=== PATIENT | male | born 1950 | race African-American/Black ===

== ENCOUNTER 2016-05-25 09:32 | Emergency (ER) | payer MEDICAID ==
[~2016-05-25] VITALS: Ht 185.4 cm; Wt 91.0 kg
[~2016-05-25 09:32] MED LIST: LEVO500T15 PO
[2016-05-25] MEDS ORDERED: KETOROLAC 30MG/ML VIAL IM ONE (11:15)
[2016-05-25 12:08] VITALS: BP 138/79
== END 2016-05-25 14:58 | disposition home or self-care (01) ==
LOC: ER 11:52
DX: M25.562 Pain in left knee (principal); I10 Essential (primary) hypertension; Z90.81 Acquired absence of spleen
CPT/HCPCS: 73562; 96372; 99284; J1885

== ENCOUNTER 2017-01-21 12:39 | Inpatient (IN) | payer MEDICAID ==
[~2017-01-21] VITALS: Ht 185.4 cm; Wt 90.7 kg
[~2017-01-21 12:39] MED LIST changes: +AMLO10TA80 PO; +CIPR-168 PO; +FURO-151 PO; -LEVO500T15 PO; +OR220 PO; +PULM50 HHN
[2017-01-21] MEDS ORDERED: MORPHINE SULFATE 4 MG/ML CPJ (NOT FOR IM USE) IV ONE (13:30)
[2017-01-21] MEDS ORDERED: ONDANSETRON HCL 4MG/2ML VIAL IV ONE (13:30)
[2017-01-21 14:23] LABS: HEMATOCRIT. 44.9 % (42.0-52.0); HEMOGLOBIN. 14.2 g/dL (14.0-18.0); MEAN CORPUSCULAR HEMOGLOBIN 23.5 pg (28.0-32.0); MEAN CORPUSCULAR VOLUME 74.4 fL (80.0-94.0); MEAN PLATELET VOLUME 8.9 fl (7.4-10.4); PLATELET 352 x1000/uL (130-400); RED BLOOD CELL COUNT 6.03 mill/uL (4.7-6.1); RED CELL DISTRIBUTION WIDTH 18.3 % (11.6-14.6)
[2017-01-21 14:30] LABS: INR 1.3; PROTHROMBIN TIME 13.3 sec (9.4-11.6)
[2017-01-21 14:40] LABS: CARBON DIOXIDE 25 mEq/L (21-32); CHLORIDE 106 mEq/L (98-107); TROPONIN I < 0.02 ng/mL (0.00-0.04)
[2017-01-21] MEDS ORDERED: ASPIRIN 325MG EC TABLET PO ONE (15:15)
[2017-01-21 15:25] LABS: ATYPICAL LYMPHOCYTES 1
[2017-01-21 15:26] LABS: PLATELET ESTIMATE NORMAL
[2017-01-21] MEDS ORDERED: ACETAMINOPHEN 325MG TABLET PO PRN (16:00)
[2017-01-21] MEDS ORDERED: HYDROCODONE/ACETAMINOPHEN 5/325MG TABLET PO PRN (16:00)
[2017-01-21] MEDS ORDERED: MAGNESIUM/ALUMINUM HYDROXIDE/SIMETHICONE 30ML UDC PO PRN (16:00)
[2017-01-21] MEDS ORDERED: DIPHENHYDRAMINE 50MG/ML VIAL IV PRN (16:00)
[2017-01-21] MEDS ORDERED: MORPHINE SULFATE 2 MG/ML CPJ (NOT FOR IM USE) IV PRN (16:00)
[2017-01-21] MEDS ORDERED: IPRATROPIUM/ALBUTEROL 0.5-3(2.5)MG/3ML NEB INH PRN (16:00)
[2017-01-21] MEDS ORDERED: DOCUSATE SODIUM 100MG CAPSULE PO PRN (16:00)
[2017-01-21] MEDS ORDERED: NA PHOS,M-B/NA PHOS,DI-BA ENEMA 118ML PR PRN (16:00)
[2017-01-21] MEDS ORDERED: ONDANSETRON HCL 4MG/2ML VIAL IV PRN (16:00)
[2017-01-21] MEDS ORDERED: LORAZEPAM 0.5MG TABLET PO PRN (16:15)
[2017-01-21] MEDS: CLONIDINE 0.1MG TABLET PO PRN (17:15)
[2017-01-21 17:40] VITALS: BP 158/109
[2017-01-21 20:00] VITALS: BP 135/94
[2017-01-21] MEDS: ENOXAPARIN 40MG/0.4ML SYR SUBCUT SCH (20:48)
[2017-01-22] VITALS: BP 126/84
[2017-01-22 04:00] VITALS: BP 132/78
[2017-01-22 06:20] LABS: CARBON DIOXIDE 24 mEq/L (21-32); CHLORIDE 109 mEq/L (98-107)
[2017-01-22 06:26] LABS: BASOPHILS % 0.4 % (0.0-2.0); HDL CHOLESTEROL 38 mg/dL (40-59); HEMOGLOBIN. 12.9 g/dL (14.0-18.0); LDL CHOLESTEROL 59 mg/dL (5-100); LYMPHOCYTES % 28.9 % (20.0-50.0); MEAN CORPUSCULAR HEMOGLOBIN 23.2 pg (28.0-32.0); MEAN CORPUSCULAR VOLUME 73.7 fL (80.0-94.0); MEAN PLATELET VOLUME 9.5 fl (7.4-10.4); MONOCYTES % 14.2 % (2.0-8.0); NEUTROPHILS % 56.5 % (40.0-76.0); PLATELET 348 x1000/uL (130-400); RED BLOOD CELL COUNT 5.56 mill/uL (4.7-6.1); T4 FREE 1.44 ng/dL (0.76-1.46); TROPONIN I 0.02 ng/mL (0.00-0.04)
[2017-01-22 08:00] VITALS: BP 149/103
[2017-01-22] MEDS: ASPIRIN 81MG EC TABLET PO SCH (09:21)
[2017-01-22] MEDS: CLONIDINE 0.1MG TABLET PO PRN (09:21)
[2017-01-22 12:13] VITALS: BP 140/90
[2017-01-22] MEDS: LEVOFLOXACIN 500MG TABLET PO SCH (14:51)
[2017-01-22 15:41] LABS: *AMPHETAMINES SCREEN URINE NEGATIVE (NEGATIVE); *BARBITURATES SCREEN URINE NEGATIVE (NEGATIVE); *BENZODIAZEPINES SCREEN URINE NEGATIVE (NEGATIVE); *COCAINE SCREEN URINE PRESUMTIVE POSITIVE (NEGATIVE); CANNABINOID URINE SCREEN NEGATIVE (NEGATIVE); METHADONE URINE SCREEN NEGATIVE (NEGATIVE); OPIATES URINE SCREEN PRESUMTIVE POSITIVE (NEGATIVE); PHENCYCLIDINE URINE SCREEN NEGATIVE (NEGATIVE)
[2017-01-22 16:00] VITALS: BP 126/78
[2017-01-22] MEDS: LOSARTAN POTASSIUM 25 MG TABLET PO SCH (16:54)
[2017-01-22 17:50] LABS: TROPONIN I 0.04 ng/mL (0.00-0.04)
[2017-01-22 20:00] VITALS: BP 147/80
[2017-01-22] MEDS: CARVEDILOL 3.125 MG TABLET PO SCH (20:52)
[2017-01-22] MEDS: ENOXAPARIN 40MG/0.4ML SYR SUBCUT SCH (20:53)
[2017-01-23] VITALS: BP 128/77
[2017-01-23 01:09] LABS: CREATINE KINASE MB FRACTION 1.1 ng/mL (0.5-3.6); TROPONIN I 0.03 ng/mL (0.00-0.04)
[2017-01-23] MEDS: GUAIFENESIN 200MG/10ML SUGAR FREE UDC PO PRN ×2 (03:12→07:41)
[2017-01-23 04:00] VITALS: BP 136/85
[2017-01-23 07:09] LABS: HEMATOCRIT. 40.9 % (42.0-52.0); HEMOGLOBIN. 12.8 g/dL (14.0-18.0); MEAN CORPUSCULAR VOLUME 73.9 fL (80.0-94.0); MEAN PLATELET VOLUME 9.4 fl (7.4-10.4); PLATELET 347 x1000/uL (130-400); RED BLOOD CELL COUNT 5.54 mill/uL (4.7-6.1); RED CELL DISTRIBUTION WIDTH 18.2 % (11.6-14.6)
[2017-01-23 07:42] LABS: CHLORIDE 108 mEq/L (98-107)
[2017-01-23 08:00] VITALS: BP 140/98
[2017-01-23 08:17] LABS: CARBON DIOXIDE 22 mEq/L (21-32); CREATINE KINASE 25 IU/L (39-308); CREATINE KINASE MB FRACTION 1.1 ng/mL (0.5-3.6); TROPONIN I 0.03 ng/mL (0.00-0.04)
[2017-01-23] MEDS: CARVEDILOL 3.125 MG TABLET PO SCH (10:02)
[2017-01-23] MEDS: LEVOFLOXACIN 500MG TABLET PO SCH (10:02)
[2017-01-23] MEDS: LOSARTAN POTASSIUM 25 MG TABLET PO SCH (10:02)
[2017-01-23] MEDS: ASPIRIN 81MG EC TABLET PO SCH (10:02)
[2017-01-23 10:08] VITALS: BP 140/98
[2017-01-24 09:29] LABS: PLATELET ESTIMATE NORMAL
== END 2017-01-23 10:27 | disposition home or self-care (01) | DRG 199 ==
LOC: ER 13:14 → ENRESERV 14:19 → 8WST 15:33 → EDBEDREQ 15:35
PROVIDERS: ADMIT Internal Medicine; ATTEND Internal Medicine
DX: I16.9 Hypertensive crisis, unspecified (principal); R65.11 Systemic inflammatory response syndrome (SIRS) of non-infectious origin with acute organ dysfunction; I50.9 Heart failure, unspecified; I11.0 Hypertensive heart disease with heart failure; F10.21 Alcohol dependence, in remission; F17.210 Nicotine dependence, cigarettes, uncomplicated; I25.10 Atherosclerotic heart disease of native coronary artery without angina pectoris; K21.9 Gastro-esophageal reflux disease without esophagitis; Z90.81 Acquired absence of spleen; Z79.899 Other long term (current) drug therapy; M94.0 Chondrocostal junction syndrome [Tietze]
CPT/HCPCS: 36415; 71010; 80048; 80053; 80061; 80305; 82550; 82553; 83036; 83880; 84439; 84443; 84484; 85025; 85379; 85610; 93005; 93306; 93970; 96374; 96375; 99285; J1650; J2270; J2405

== ENCOUNTER 2017-02-04 10:20 | Inpatient (IN) | payer MEDICAID ==
[~2017-02-04] VITALS: Ht 172.7 cm; Wt 81.3 kg
[2017-02-04 14:42] LABS: EOSINOPHILS % 0.3 % (0.0-5.0); HEMATOCRIT. 46.6 % (42.0-52.0); HEMOGLOBIN. 14.6 g/dL (14.0-18.0); MEAN CORPUSCULAR HEMOGLOBIN 22.8 pg (28.0-32.0); MEAN CORPUSCULAR VOLUME 72.5 fL (80.0-94.0); MEAN PLATELET VOLUME 10.3 fl (7.4-10.4); MONOCYTES % 14.2 % (2.0-8.0); NEUTROPHILS % 52.5 % (40.0-76.0); PLATELET 203 x1000/uL (130-400); RED BLOOD CELL COUNT 6.43 mill/uL (4.7-6.1); RED CELL DISTRIBUTION WIDTH 17.6 % (11.6-14.6)
[2017-02-04 14:50] LABS: INR 1.2; PARTIAL THROMBOPLASTIN TIME 28.5 sec (23.4-31.0); PROTHROMBIN TIME 12.5 sec (9.4-11.6)
[2017-02-04 15:00] LABS: CARBON DIOXIDE 26 mEq/L (21-32); CHLORIDE 110 mEq/L (98-107); TROPONIN I 0.03 ng/mL (0.00-0.04)
[2017-02-04] MEDS ORDERED: CEFTRIAXONE SODIUM 1 G/VIAL IM SCH (15:15)
[2017-02-04] MEDS ORDERED: AZITHROMYCIN 500 MG TABLET PO SCH (15:30)
[2017-02-04] MEDS ORDERED: IPRATROPIUM/ALBUTEROL 0.5-3(2.5)MG/3ML NEB INH PRN (17:30)
[2017-02-04] MEDS ORDERED: GUAIFENESIN 200MG/10ML SUGAR FREE UDC PO PRN (17:30)
[2017-02-04] MEDS ORDERED: LORAZEPAM 0.5MG TABLET PO PRN (17:30)
[2017-02-04] MEDS ORDERED: ACETAMINOPHEN 325MG TABLET PO PRN (17:30)
[2017-02-04] MEDS ORDERED: NA PHOS,M-B/NA PHOS,DI-BA ENEMA 118ML PR PRN (17:30)
[2017-02-04] MEDS ORDERED: MORPHINE SULFATE 2 MG/ML CPJ (NOT FOR IM USE) IV PRN (17:30)
[2017-02-04] MEDS ORDERED: MAGNESIUM/ALUMINUM HYDROXIDE/SIMETHICONE 30ML UDC PO PRN (17:30)
[2017-02-04] MEDS ORDERED: ONDANSETRON HCL 4MG/2ML VIAL IV PRN (17:30)
[2017-02-04] MEDS ORDERED: DOCUSATE SODIUM 100MG CAPSULE PO PRN (17:30)
[2017-02-04] MEDS ORDERED: HYDROCODONE/APAP 7.5/325MG 1 TAB TABLET PO PRN (17:30)
[2017-02-04] MEDS ORDERED: DIPHENHYDRAMINE 50MG/ML VIAL IV PRN (17:30)
[2017-02-04 18:01] VITALS: BP 135/85
[2017-02-04 20:00] VITALS: BP 124/84
[2017-02-04] MEDS ORDERED: LEVOFLOXACIN 500MG PREMIX 100 ML IV SCH (20:00)
[2017-02-04] MEDS ORDERED: PNEUMOCOCCAL 23-VAL P-SAC VAC 0.5 ML IM ONE (21:00)
[2017-02-04] MEDS: ENOXAPARIN 40MG/0.4ML SYR SUBCUT SCH (21:16)
[2017-02-05] VITALS: BP 131/83
[2017-02-05 04:00] VITALS: BP 158/74
[2017-02-05 06:09] LABS: CHLORIDE 113 mEq/L (98-107)
[2017-02-05 06:17] LABS: HEMATOCRIT. 44.6 % (42.0-52.0); HEMOGLOBIN. 13.7 g/dL (14.0-18.0); MEAN CORPUSCULAR HEMOGLOBIN 22.4 pg (28.0-32.0); MEAN CORPUSCULAR VOLUME 73.2 fL (80.0-94.0); MEAN PLATELET VOLUME 10.6 fl (7.4-10.4); PLATELET 184 x1000/uL (130-400); RED BLOOD CELL COUNT 6.09 mill/uL (4.7-6.1); RED CELL DISTRIBUTION WIDTH 17.7 % (11.6-14.6)
[2017-02-05 06:22] LABS: CARBON DIOXIDE 22 mEq/L (21-32); HDL CHOLESTEROL 29 mg/dL (40-59); LDL CHOLESTEROL 49 mg/dL (5-100); T4 FREE 1.33 ng/dL (0.76-1.46); TROPONIN I 0.03 ng/mL (0.00-0.04)
[2017-02-05 08:00] VITALS: BP 141/89
[2017-02-05] MEDS ORDERED: INFLUENZA VIRUS VACCINE 0.5ML SYR IM ONE (09:00)
[2017-02-05] MEDS: ASPIRIN 81MG EC TABLET PO SCH (09:14)
[2017-02-05 10:21] LABS: NUCLEATED RED BLOOD CELLS 5 /100 WBC
[2017-02-05 10:22] LABS: PLATELET ESTIMATE NORMAL
[2017-02-05 12:00] VITALS: BP 140/78
[2017-02-05 16:29] VITALS: BP 128/89
[2017-02-05 18:10] LABS: CREATINE KINASE MB FRACTION 1.4 ng/mL (0.5-3.6)
[2017-02-05 18:18] LABS: TROPONIN I 0.03 ng/mL (0.00-0.04)
[2017-02-05] MEDS ORDERED: LOPERAMIDE HCL 2MG CAPSULE PO PRN (19:00)
[2017-02-05] MEDS ORDERED: POTASSIUM CHLORIDE 20MEQ TABLET SR PO NR (19:30)
[2017-02-05] MEDS: LEVOFLOXACIN 500MG PREMIX 100 ML IV SCH (20:33)
[2017-02-05] MEDS: ENOXAPARIN 40MG/0.4ML SYR SUBCUT SCH (20:33)
[2017-02-06] VITALS: BP 145/101
[2017-02-06] MEDS: CLONIDINE 0.1MG TABLET PO PRN ×2 (00:33→16:32)
[2017-02-06 00:59] LABS: CREATINE KINASE MB FRACTION 1.1 ng/mL (0.5-3.6); TROPONIN I 0.03 ng/mL (0.00-0.04)
[2017-02-06 08:00] VITALS: BP 138/89
[2017-02-06] MEDS: ASPIRIN 81MG EC TABLET PO SCH (09:57)
[2017-02-06 12:00] VITALS: BP 143/103
[2017-02-06 12:32] LABS: CREATINE KINASE MB FRACTION 1.2 ng/mL (0.5-3.6); TROPONIN I 0.02 ng/mL (0.00-0.04)
[2017-02-06 16:00] VITALS: BP 141/103
[2017-02-06 20:00] VITALS: BP 139/101
[2017-02-06] MEDS: ENOXAPARIN 40MG/0.4ML SYR SUBCUT SCH (20:48)
[2017-02-06] MEDS: LEVOFLOXACIN 500MG PREMIX 100 ML IV SCH (20:48)
[2017-02-07] VITALS: BP 140/99
[2017-02-07 04:00] VITALS: BP 132/97
[2017-02-07] MEDS: ASPIRIN 81MG EC TABLET PO SCH (08:39)
[2017-02-07 10:29] VITALS: BP 144/89
[2017-02-07] MEDS ORDERED: LOSARTAN POTASSIUM 25 MG TABLET PO SCH (11:00)
[2017-02-07 11:35] VITALS: BP 144/89
[2017-02-07] MEDS: CLONIDINE 0.1MG TABLET PO PRN (11:59)
[2017-02-07] MEDS ORDERED: CARVEDILOL 3.125 MG TABLET PO SCH (21:00)
== END 2017-02-07 12:40 | disposition home or self-care (01) | DRG 137 ==
LOC: ER 10:50 → 5WST 15:27 → ENRESERV 15:34
PROVIDERS: ADMIT Internal Medicine; ATTEND Internal Medicine
DX: J69.0 Pneumonitis due to inhalation of food and vomit (principal); E43 Unspecified severe protein-calorie malnutrition; I42.9 Cardiomyopathy, unspecified; I27.20 Pulmonary hypertension, unspecified; I11.0 Hypertensive heart disease with heart failure; I50.9 Heart failure, unspecified; F10.21 Alcohol dependence, in remission; F17.210 Nicotine dependence, cigarettes, uncomplicated; I25.10 Atherosclerotic heart disease of native coronary artery without angina pectoris; I36.1 Nonrheumatic tricuspid (valve) insufficiency; Z90.81 Acquired absence of spleen; Z79.899 Other long term (current) drug therapy
CPT/HCPCS: 36415; 71010; 80053; 80061; 82550; 82553; 83036; 83690; 83880; 84439; 84443; 84484; 85025; 85379; 85610; 85730; 87040; 87493; 90686; 93005; 93306; 96372; 99285; J0696; J1650; J1956; J7040

== ENCOUNTER 2017-02-27 18:21 | Inpatient (IN) | payer MEDICAID ==
[~2017-02-27] VITALS: Ht 186.7 cm; Wt 96.6 kg
[~2017-02-27 18:21] MED LIST changes: -CIPR-168 PO
[2017-02-27] MEDS ORDERED: MORPHINE SULFATE 4 MG/ML CPJ (NOT FOR IM USE) IV ONE (18:45)
[2017-02-27] MEDS ORDERED: ASPIRIN 325MG EC TABLET PO ONE (18:45)
[2017-02-27 19:30] LABS: HEMATOCRIT. 43.9 % (42.0-52.0); HEMOGLOBIN. 13.5 g/dL (14.0-18.0); MEAN CORPUSCULAR HEMOGLOBIN 22.7 pg (28.0-32.0); MEAN CORPUSCULAR VOLUME 73.7 fL (80.0-94.0); MEAN PLATELET VOLUME 9.5 fl (7.4-10.4); PLATELET 320 x1000/uL (130-400); RED BLOOD CELL COUNT 5.95 mill/uL (4.7-6.1); RED CELL DISTRIBUTION WIDTH 19.7 % (11.6-14.6)
[2017-02-27 19:32] LABS: INR 3.7; PROTHROMBIN TIME 38.8 sec (9.4-11.6)
[2017-02-27 19:48] LABS: CARBON DIOXIDE 16 mEq/L (21-32); CHLORIDE 99 mEq/L (98-107); TROPONIN I 0.34 ng/mL (0.00-0.04)
[2017-02-27 19:54] LABS: PLATELET ESTIMATE NORMAL
[2017-02-27] MEDS ORDERED: FUROSEMIDE 100MG/10ML VIAL IV STA (20:06)
[2017-02-27] MEDS ORDERED: DEXTROSE 50% WATER 50ML SYRINGE IV ONE ×3 (20:14→21:30)
[2017-02-27] MEDS ORDERED: SODIUM BICARBONATE 8.4% 1 MEQ/ML 50ML SYR IV ONE (20:15)
[2017-02-27] MEDS ORDERED: ALBUTEROL (0.083%) 2.5MG/3ML NEB HHN ONE (20:15)
[2017-02-27] MEDS ORDERED: CALCIUM CHLORIDE 1GM/10ML SYR IV ONE (20:15)
[2017-02-27] MEDS ORDERED: GUAIFENESIN 200MG/10ML SUGAR FREE UDC PO PRN (21:15)
[2017-02-27] MEDS ORDERED: ACETAMINOPHEN 325MG TABLET PO PRN (21:15)
[2017-02-27] MEDS ORDERED: DOCUSATE SODIUM 100MG CAPSULE PO PRN (21:15)
[2017-02-27] MEDS ORDERED: MAGNESIUM/ALUMINUM HYDROXIDE/SIMETHICONE 30ML UDC PO PRN (21:15)
[2017-02-27] MEDS ORDERED: ONDANSETRON HCL 4MG/2ML VIAL IV PRN (21:15)
[2017-02-27] MEDS ORDERED: HYDROCODONE/ACETAMINOPHEN 5/325MG TABLET PO PRN (21:15)
[2017-02-27] MEDS ORDERED: NA PHOS,M-B/NA PHOS,DI-BA ENEMA 118ML PR PRN (21:15)
[2017-02-27] MEDS ORDERED: ENOXAPARIN 40MG/0.4ML SYR SUBCUT SCH (21:15)
[2017-02-27] MEDS ORDERED: LORAZEPAM 2MG/ML CPJ IV PRN (21:15)
[2017-02-27] MEDS ORDERED: ALBUTEROL (0.5%) 2.5MG/0.5ML NEB HHN ONE (21:22)
[2017-02-27] MEDS ORDERED: MORPHINE SULFATE 4 MG/ML CPJ (NOT FOR IM USE) IV PRN (21:23)
[2017-02-27] MEDS: DEXT 5%/0.45% NACL 1000ML 1,000 ML IV SCH (21:34)
[2017-02-27 21:38] LABS: BG CARBOXYHEMOGLOBIN 2.1 % (0.5-1.5); BG DEOXYHEMOGLOBIN 4.4 % (0.0-5.0); BG FRACTION INSPIRED OXYGEN 21; BG HCO3 ACT 15.4 mmol/L (22.0-26.0); BG METHEMOGLOBIN 0.5 % (0.0-1.5); BG OXYGEN SATURATION 95.5 % (92.0-98.5); BG PCO2 29.3 mmHg (35.0-45.0); BG PH 7.339 (7.350-7.450); BG SAMPLE SITE RIGHT RADIAL; BG TOTAL HEMOGLOBIN 13.4 g/dL (12.0-18.0); BG VENT MODE ROOM AIR
[2017-02-27] MEDS ORDERED: SODIUM CHLORIDE 0.9% 1,000 ML IV ONE (23:52)
[2017-02-28] VITALS (9 sets, daily range): BP systolic 133–155; BP diastolic 89–114
[2017-02-28 00:49] LABS: TROPONIN I 0.41 ng/mL (0.00-0.04)
[2017-02-28] MEDS ORDERED: SODIUM POLYSTYRENE SULFONATE 15 G/60 ML BOT PO NR (03:00)
[2017-02-28 05:17] LABS: BASOPHILS % 0.1 % (0.0-2.0); HEMATOCRIT. 43.1 % (42.0-52.0); HEMOGLOBIN. 13.1 g/dL (14.0-18.0); LYMPHOCYTES % 11.8 % (20.0-50.0); MEAN CORPUSCULAR HEMOGLOBIN 23.2 pg (28.0-32.0); MONOCYTES % 14.9 % (2.0-8.0); NEUTROPHILS % 73.2 % (40.0-76.0); RED BLOOD CELL COUNT 5.67 mill/uL (4.7-6.1); RED CELL DISTRIBUTION WIDTH 19.7 % (11.6-14.6)
[2017-02-28] MEDS ORDERED: AMLODIPINE 10MG TABLET PO SCH (09:00)
[2017-02-28] MEDS: ZINC SULFATE 220 MG ( 50 ) CAPSULE PO SCH (09:19)
[2017-02-28] MEDS: FUROSEMIDE 40MG TABLET PO SCH (09:20)
[2017-02-28 10:41] LABS: CARBON DIOXIDE 20 mEq/L (21-32); CHLORIDE 103 mEq/L (98-107); HDL CHOLESTEROL 22 mg/dL (40-59); LDL CHOLESTEROL 56 mg/dL (5-100); T4 FREE 1.36 ng/dL (0.76-1.46)
[2017-02-28] MEDS: CLONIDINE 0.1MG TABLET PO PRN ×2 (11:07→18:08)
[2017-02-28 11:12] LABS: TROPONIN I 0.74 ng/mL (0.00-0.04)
[2017-02-28] MEDS ORDERED: SODIUM POLYSTYRENE SULFONATE 15 G/60 ML BOT PO SCH (12:00)
[2017-02-28] MEDS: IPRATROPIUM/ALBUTEROL 0.5-3(2.5)MG/3ML NEB INH PRN (12:17)
[2017-02-28] MEDS: BUDESONIDE 0.5MG/2ML NEB HHN SCH ×2 (12:17→21:00)
[2017-02-28] MEDS: DILTIAZEM HCL 60MG TABLET PO SCH ×2 (13:04→21:06)
[2017-02-28 15:45] LABS: CLARITY URINE CLOUDY (CLEAR); COLOR URINE DARK YELLOW (YELLOW); KETONES URINE NEGATIVE (NEGATIVE); LEUKOCYTE ESTERASE URINE NEGATIVE (NEGATIVE); NITRITE URINE NEGATIVE (NEGATIVE); OCCULT BLOOD URINE 2+ (NEGATIVE); PROTEIN URINE 2+ (NEGATIVE); SPECIFIC GRAVITY URINE 1.016 (1.005-1.030)
[2017-02-28 16:20] LABS: *AMPHETAMINES SCREEN URINE NEGATIVE (NEGATIVE); *BARBITURATES SCREEN URINE NEGATIVE (NEGATIVE); *BENZODIAZEPINES SCREEN URINE NEGATIVE (NEGATIVE); *COCAINE SCREEN URINE PRESUMTIVE POSITIVE (NEGATIVE); CANNABINOID URINE SCREEN NEGATIVE (NEGATIVE); METHADONE URINE SCREEN NEGATIVE (NEGATIVE); OPIATES URINE SCREEN PRESUMTIVE POSITIVE (NEGATIVE); PHENCYCLIDINE URINE SCREEN NEGATIVE (NEGATIVE)
[2017-02-28] MEDS: DEXT 5%/0.45% NACL 1000ML 1,000 ML IV SCH (16:23)
[2017-02-28] MEDS ORDERED: BLOOD SUGAR DIAGNOSTIC STRIP TEST SCH (16:50)
[2017-02-28] MEDS ORDERED: DEXTROSE 50% WATER 50ML SYRINGE IV PRN (18:30)
[2017-02-28] MEDS: INSULIN LISPRO 100 UNITS/ML SUBCUT SCH (21:00)
[2017-02-28] MEDS: BLOOD SUGAR DIAGNOSTIC STRIP TEST SCH (21:04)
[2017-02-28] MEDS: CARVEDILOL 6.25 MG TABLET PO SCH (21:06)
[2017-03-01] VITALS (11 sets, daily range): BP systolic 106–130; BP diastolic 65–99
[2017-03-01] MEDS: DEXT 5%/0.45% NACL 1000ML 1,000 ML IV SCH ×2 (06:04→23:15)
[2017-03-01] MEDS: DILTIAZEM HCL 60MG TABLET PO SCH ×3 (06:05→21:27)
[2017-03-01] MEDS: BLOOD SUGAR DIAGNOSTIC STRIP TEST SCH ×4 (06:06→21:22)
[2017-03-01 07:11] LABS: HEMATOCRIT. 40.9 % (42.0-52.0); HEMOGLOBIN. 12.9 g/dL (14.0-18.0); MEAN CORPUSCULAR HEMOGLOBIN 22.8 pg (28.0-32.0); MEAN PLATELET VOLUME 9.2 fl (7.4-10.4); PLATELET 259 x1000/uL (130-400); RED BLOOD CELL COUNT 5.68 mill/uL (4.7-6.1); RED CELL DISTRIBUTION WIDTH 19.4 % (11.6-14.6)
[2017-03-01] MEDS: INSULIN LISPRO 100 UNITS/ML SUBCUT SCH ×4 (07:20→21:00)
[2017-03-01] MEDS: ZINC SULFATE 220 MG ( 50 ) CAPSULE PO SCH (08:12)
[2017-03-01] MEDS: CARVEDILOL 6.25 MG TABLET PO SCH ×2 (08:13→21:26)
[2017-03-01] MEDS: FUROSEMIDE 40MG TABLET PO SCH (08:13)
[2017-03-01] MEDS: BUDESONIDE 0.5MG/2ML NEB HHN SCH ×2 (09:37→21:03)
[2017-03-01] MEDS: IPRATROPIUM/ALBUTEROL 0.5-3(2.5)MG/3ML NEB INH PRN ×2 (09:37→21:03)
[2017-03-01 10:34] LABS: NUCLEATED RED BLOOD CELLS 43 /100 WBC; PLATELET ESTIMATE NORMAL
[2017-03-02] VITALS (18 sets, daily range): BP systolic 90–136; BP diastolic 51–85
[2017-03-02] MEDS: DILTIAZEM HCL 60MG TABLET PO SCH ×3 (06:00→21:44)
[2017-03-02] MEDS: BLOOD SUGAR DIAGNOSTIC STRIP TEST SCH ×4 (06:51→21:05)
[2017-03-02] MEDS: INSULIN LISPRO 100 UNITS/ML SUBCUT SCH ×4 (07:20→21:04)
[2017-03-02 07:29] LABS: HEMATOCRIT. 40.8 % (42.0-52.0); HEMOGLOBIN. 12.8 g/dL (14.0-18.0); MEAN CORPUSCULAR HEMOGLOBIN 22.3 pg (28.0-32.0); MEAN CORPUSCULAR VOLUME 71.2 fL (80.0-94.0); MEAN PLATELET VOLUME 9.3 fl (7.4-10.4); PLATELET 261 x1000/uL (130-400); RED BLOOD CELL COUNT 5.73 mill/uL (4.7-6.1)
[2017-03-02] MEDS: ZINC SULFATE 220 MG ( 50 ) CAPSULE PO SCH (08:40)
[2017-03-02] MEDS: FUROSEMIDE 40MG TABLET PO SCH (08:43)
[2017-03-02] MEDS: CARVEDILOL 6.25 MG TABLET PO SCH ×2 (08:43→21:07)
[2017-03-02] MEDS: BUDESONIDE 0.5MG/2ML NEB HHN SCH ×2 (09:05→20:28)
[2017-03-02] MEDS: IPRATROPIUM/ALBUTEROL 0.5-3(2.5)MG/3ML NEB INH PRN ×2 (09:05→20:28)
[2017-03-02 13:14] LABS: NUCLEATED RED BLOOD CELLS 23 /100 WBC
[2017-03-02 13:15] LABS: PLATELET ESTIMATE NORMAL
[2017-03-03] VITALS (16 sets, daily range): BP systolic 107–151; BP diastolic 69–99
[2017-03-03] MEDS: DILTIAZEM HCL 60MG TABLET PO SCH ×3 (06:43→21:38)
[2017-03-03] MEDS: BLOOD SUGAR DIAGNOSTIC STRIP TEST SCH ×4 (06:44→21:30)
[2017-03-03 06:52] LABS: HEMOGLOBIN. 12.8 g/dL (14.0-18.0); MEAN CORPUSCULAR HEMOGLOBIN 22.5 pg (28.0-32.0); MEAN CORPUSCULAR VOLUME 72.2 fL (80.0-94.0); MEAN PLATELET VOLUME 9.4 fl (7.4-10.4); PLATELET 173 x1000/uL (130-400); RED BLOOD CELL COUNT 5.68 mill/uL (4.7-6.1); RED CELL DISTRIBUTION WIDTH 19.5 % (11.6-14.6)
[2017-03-03] MEDS: INSULIN LISPRO 100 UNITS/ML SUBCUT SCH ×4 (07:20→21:00)
[2017-03-03 08:18] LABS: TROPONIN I 0.12 ng/mL (0.00-0.04)
[2017-03-03] MEDS: ZINC SULFATE 220 MG ( 50 ) CAPSULE PO SCH (08:58)
[2017-03-03] MEDS: FUROSEMIDE 40MG TABLET PO SCH (08:58)
[2017-03-03] MEDS: CARVEDILOL 6.25 MG TABLET PO SCH ×2 (08:58→21:38)
[2017-03-03 09:12] LABS: NUCLEATED RED BLOOD CELLS 5 /100 WBC; PLATELET ESTIMATE NORMAL
[2017-03-03] MEDS: BUDESONIDE 0.5MG/2ML NEB HHN SCH ×2 (09:18→20:00)
[2017-03-03] MEDS: IPRATROPIUM/ALBUTEROL 0.5-3(2.5)MG/3ML NEB INH PRN (09:18)
[2017-03-03] MEDS ORDERED: POTASSIUM CHLORIDE 20MEQ TABLET SR PO SCH (09:30)
[2017-03-03] MEDS: LACTOBACILLUS GG CAPSULE PO SCH (14:17)
[2017-03-03] MEDS: METRONIDAZOLE 250MG TABLET PO SCH ×2 (14:17→21:38)
[2017-03-03] MEDS: MUPIROCIN 2% OINT 22GM NS SCH (21:35)
[2017-03-04] VITALS (16 sets, daily range): BP systolic 64–160; BP diastolic 53–97
[2017-03-04] MEDS: METRONIDAZOLE 250MG TABLET PO SCH ×3 (06:02→20:49)
[2017-03-04] MEDS: BLOOD SUGAR DIAGNOSTIC STRIP TEST SCH ×4 (06:07→20:50)
[2017-03-04] MEDS: DILTIAZEM HCL 60MG TABLET PO SCH ×3 (06:07→20:50)
[2017-03-04 07:19] LABS: BASOPHILS % 0.1 % (0.0-2.0); HEMATOCRIT. 40.5 % (42.0-52.0); HEMOGLOBIN. 12.7 g/dL (14.0-18.0); LYMPHOCYTES % 11.9 % (20.0-50.0); MEAN CORPUSCULAR HEMOGLOBIN 22.7 pg (28.0-32.0); MEAN CORPUSCULAR VOLUME 72.3 fL (80.0-94.0); MEAN PLATELET VOLUME 9.4 fl (7.4-10.4); MONOCYTES % 10.2 % (2.0-8.0); NEUTROPHILS % 76.8 % (40.0-76.0); PLATELET 135 x1000/uL (130-400); RED CELL DISTRIBUTION WIDTH 19.4 % (11.6-14.6)
[2017-03-04] MEDS: INSULIN LISPRO 100 UNITS/ML SUBCUT SCH ×4 (07:20→20:49)
[2017-03-04] MEDS: IPRATROPIUM/ALBUTEROL 0.5-3(2.5)MG/3ML NEB INH PRN ×2 (07:58→21:36)
[2017-03-04] MEDS: BUDESONIDE 0.5MG/2ML NEB HHN SCH ×2 (07:58→21:36)
[2017-03-04] MEDS: MUPIROCIN 2% OINT 22GM NS SCH ×2 (09:00→20:49)
[2017-03-04] MEDS: LACTOBACILLUS GG CAPSULE PO SCH (09:40)
[2017-03-04] MEDS: CARVEDILOL 6.25 MG TABLET PO SCH ×2 (09:40→20:50)
[2017-03-04] MEDS: ZINC SULFATE 220 MG ( 50 ) CAPSULE PO SCH (09:41)
[2017-03-04] MEDS: FUROSEMIDE 40MG TABLET PO SCH (09:41)
[2017-03-04] MEDS ORDERED: POTASSIUM CHLORIDE 20MEQ TABLET SR PO SCH (09:45)
[2017-03-05 00:30] VITALS: BP 135/83
[2017-03-05 04:00] VITALS: BP 139/85
[2017-03-05] MEDS: BLOOD SUGAR DIAGNOSTIC STRIP TEST SCH ×4 (06:33→21:23)
[2017-03-05] MEDS: DILTIAZEM HCL 60MG TABLET PO SCH ×3 (06:34→21:26)
[2017-03-05] MEDS: METRONIDAZOLE 250MG TABLET PO SCH ×3 (06:34→21:27)
[2017-03-05] MEDS: INSULIN LISPRO 100 UNITS/ML SUBCUT SCH ×4 (06:37→21:00)
[2017-03-05 08:00] VITALS: BP 116/92
[2017-03-05] MEDS: ZINC SULFATE 220 MG ( 50 ) CAPSULE PO SCH (08:15)
[2017-03-05] MEDS: FUROSEMIDE 40MG TABLET PO SCH (08:15)
[2017-03-05] MEDS: LACTOBACILLUS GG CAPSULE PO SCH (08:15)
[2017-03-05] MEDS: CARVEDILOL 6.25 MG TABLET PO SCH ×2 (08:15→21:27)
[2017-03-05] MEDS: MUPIROCIN 2% OINT 22GM NS SCH ×2 (08:15→21:27)
[2017-03-05 12:00] VITALS: BP 119/82
[2017-03-05 12:39] LABS: BASOPHILS % 0.4 % (0.0-2.0); HEMATOCRIT. 43.5 % (42.0-52.0); HEMOGLOBIN. 13.3 g/dL (14.0-18.0); LYMPHOCYTES % 14.8 % (20.0-50.0); MEAN CORPUSCULAR HEMOGLOBIN 22.1 pg (28.0-32.0); MEAN CORPUSCULAR VOLUME 72.7 fL (80.0-94.0); MEAN PLATELET VOLUME 9.8 fl (7.4-10.4); MONOCYTES % 6.3 % (2.0-8.0); NEUTROPHILS % 77.5 % (40.0-76.0); PLATELET 171 x1000/uL (130-400); RED BLOOD CELL COUNT 5.99 mill/uL (4.7-6.1); RED CELL DISTRIBUTION WIDTH 19.8 % (11.6-14.6)
[2017-03-05 13:02] LABS: CARBON DIOXIDE 30 mEq/L (21-32); CHLORIDE 105 mEq/L (98-107)
[2017-03-05 16:00] VITALS: BP 136/78
[2017-03-05 20:00] VITALS: BP 138/70
[2017-03-05] MEDS: BUDESONIDE 0.5MG/2ML NEB HHN SCH (20:06)
[2017-03-06] VITALS: BP 145/77
[2017-03-06 04:00] VITALS: BP 149/80
[2017-03-06] MEDS: METRONIDAZOLE 250MG TABLET PO SCH ×3 (06:32→21:14)
[2017-03-06] MEDS: DILTIAZEM HCL 60MG TABLET PO SCH ×3 (06:33→21:14)
[2017-03-06] MEDS: INSULIN LISPRO 100 UNITS/ML SUBCUT SCH ×4 (06:37→21:00)
[2017-03-06] MEDS: BLOOD SUGAR DIAGNOSTIC STRIP TEST SCH ×4 (06:37→21:08)
[2017-03-06 07:52] LABS: CHLORIDE 104 mEq/L (98-107)
[2017-03-06 08:00] VITALS: BP 131/91
[2017-03-06 08:10] LABS: CARBON DIOXIDE 25 mEq/L (21-32)
[2017-03-06 09:09] LABS: BASOPHILS % 0.4 % (0.0-2.0); EOSINOPHILS % 2.5 % (0.0-5.0); HEMATOCRIT. 41.1 % (42.0-52.0); HEMOGLOBIN. 12.5 g/dL (14.0-18.0); LYMPHOCYTES % 17.7 % (20.0-50.0); MEAN CORPUSCULAR HEMOGLOBIN 22.2 pg (28.0-32.0); MEAN CORPUSCULAR VOLUME 72.6 fL (80.0-94.0); MONOCYTES % 11.7 % (2.0-8.0); NEUTROPHILS % 67.7 % (40.0-76.0); RED BLOOD CELL COUNT 5.66 mill/uL (4.7-6.1); RED CELL DISTRIBUTION WIDTH 19.5 % (11.6-14.6)
[2017-03-06] MEDS: CARVEDILOL 6.25 MG TABLET PO SCH ×2 (09:32→21:14)
[2017-03-06] MEDS: MUPIROCIN 2% OINT 22GM NS SCH ×2 (09:33→21:15)
[2017-03-06] MEDS: FUROSEMIDE 40MG TABLET PO SCH (09:33)
[2017-03-06] MEDS: LACTOBACILLUS GG CAPSULE PO SCH (09:33)
[2017-03-06] MEDS: ZINC SULFATE 220 MG ( 50 ) CAPSULE PO SCH (09:33)
[2017-03-06 12:13] VITALS: BP 131/79
[2017-03-06 16:00] VITALS: BP 135/85
[2017-03-06 20:00] VITALS: BP 145/92
[2017-03-07] VITALS: BP 132/79
[2017-03-07] MEDS: DIPHENHYDRAMINE 50MG/ML VIAL IV PRN ×2 (01:00→21:37)
[2017-03-07] MEDS: METRONIDAZOLE 250MG TABLET PO SCH ×3 (06:01→21:34)
[2017-03-07] MEDS: DILTIAZEM HCL 60MG TABLET PO SCH ×3 (06:02→21:34)
[2017-03-07] MEDS: BLOOD SUGAR DIAGNOSTIC STRIP TEST SCH ×4 (07:10→21:44)
[2017-03-07] MEDS: INSULIN LISPRO 100 UNITS/ML SUBCUT SCH ×4 (07:40→21:00)
[2017-03-07 08:34] VITALS: BP 133/100
[2017-03-07] MEDS: LACTOBACILLUS GG CAPSULE PO SCH (09:03)
[2017-03-07] MEDS: ZINC SULFATE 220 MG ( 50 ) CAPSULE PO SCH (09:03)
[2017-03-07] MEDS: FUROSEMIDE 40MG TABLET PO SCH (09:03)
[2017-03-07] MEDS: CARVEDILOL 6.25 MG TABLET PO SCH ×2 (09:03→21:34)
[2017-03-07] MEDS: MUPIROCIN 2% OINT 22GM NS SCH ×2 (09:05→21:44)
[2017-03-07 12:00] VITALS: BP 120/85
[2017-03-07 16:14] LABS: HEMATOCRIT. 42.7 % (42.0-52.0); HEMOGLOBIN. 13.3 g/dL (14.0-18.0); MEAN CORPUSCULAR HEMOGLOBIN 22.8 pg (28.0-32.0); MEAN CORPUSCULAR VOLUME 72.9 fL (80.0-94.0); MEAN PLATELET VOLUME 10.8 fl (7.4-10.4); PLATELET 209 x1000/uL (130-400); RED BLOOD CELL COUNT 5.85 mill/uL (4.7-6.1); RED CELL DISTRIBUTION WIDTH 19.6 % (11.6-14.6)
[2017-03-07 16:17] VITALS: BP 137/85
[2017-03-07 20:00] VITALS: BP 136/85
[2017-03-07 20:02] LABS: CHLORIDE 104 mEq/L (98-107)
[2017-03-07 20:09] LABS: CARBON DIOXIDE 28 mEq/L (21-32)
[2017-03-07] MEDS: BUDESONIDE 0.5MG/2ML NEB HHN SCH ×2 (21:51→21:52)
[2017-03-07 22:14] LABS: PLATELET ESTIMATE NORMAL
[2017-03-08] VITALS: BP 129/78
[2017-03-08 04:00] VITALS: BP 128/92
[2017-03-08] MEDS: DILTIAZEM HCL 60MG TABLET PO SCH ×3 (06:52→21:53)
[2017-03-08] MEDS: METRONIDAZOLE 250MG TABLET PO SCH ×3 (06:52→21:52)
[2017-03-08] MEDS: BLOOD SUGAR DIAGNOSTIC STRIP TEST SCH ×4 (06:59→21:58)
[2017-03-08] MEDS: INSULIN LISPRO 100 UNITS/ML SUBCUT SCH ×4 (07:01→21:00)
[2017-03-08 07:11] LABS: HEMATOCRIT. 40.1 % (42.0-52.0); HEMOGLOBIN. 12.5 g/dL (14.0-18.0); MEAN CORPUSCULAR HEMOGLOBIN 22.7 pg (28.0-32.0); MEAN CORPUSCULAR VOLUME 72.5 fL (80.0-94.0); MEAN PLATELET VOLUME 10.1 fl (7.4-10.4); PLATELET 229 x1000/uL (130-400); RED BLOOD CELL COUNT 5.54 mill/uL (4.7-6.1); RED CELL DISTRIBUTION WIDTH 19.3 % (11.6-14.6)
[2017-03-08 08:03] LABS: CHLORIDE 105 mEq/L (98-107)
[2017-03-08 09:01] LABS: CARBON DIOXIDE 27 mEq/L (21-32)
[2017-03-08] MEDS: BUDESONIDE 0.5MG/2ML NEB HHN SCH ×2 (09:46→22:00)
[2017-03-08] MEDS: IPRATROPIUM/ALBUTEROL 0.5-3(2.5)MG/3ML NEB INH PRN ×2 (09:47→14:34)
[2017-03-08] MEDS: FUROSEMIDE 40MG TABLET PO SCH (10:32)
[2017-03-08] MEDS: ZINC SULFATE 220 MG ( 50 ) CAPSULE PO SCH (10:32)
[2017-03-08] MEDS: CARVEDILOL 6.25 MG TABLET PO SCH ×2 (10:33→21:53)
[2017-03-08] MEDS: MUPIROCIN 2% OINT 22GM NS SCH ×2 (10:34→21:54)
[2017-03-08] MEDS: LACTOBACILLUS GG CAPSULE PO SCH (10:36)
[2017-03-08 13:39] LABS: PLATELET ESTIMATE NORMAL
[2017-03-08 20:00] VITALS: BP 124/76
[2017-03-09 04:00] VITALS: BP 139/95
[2017-03-09] MEDS: METRONIDAZOLE 250MG TABLET PO SCH ×3 (06:47→21:26)
[2017-03-09] MEDS: DILTIAZEM HCL 60MG TABLET PO SCH ×3 (06:48→21:26)
[2017-03-09] MEDS: BLOOD SUGAR DIAGNOSTIC STRIP TEST SCH ×4 (06:53→21:00)
[2017-03-09] MEDS: INSULIN LISPRO 100 UNITS/ML SUBCUT SCH ×4 (06:53→21:00)
[2017-03-09] MEDS: BUDESONIDE 0.5MG/2ML NEB HHN SCH ×2 (07:20→22:00)
[2017-03-09 08:00] VITALS: BP 116/80
[2017-03-09] MEDS: FUROSEMIDE 40MG TABLET PO SCH (08:30)
[2017-03-09] MEDS: CARVEDILOL 6.25 MG TABLET PO SCH ×2 (08:30→21:26)
[2017-03-09] MEDS: ZINC SULFATE 220 MG ( 50 ) CAPSULE PO SCH (08:30)
[2017-03-09] MEDS: LACTOBACILLUS GG CAPSULE PO SCH (08:30)
[2017-03-09] MEDS: MUPIROCIN 2% OINT 22GM NS SCH ×2 (08:31→21:00)
[2017-03-09 12:00] VITALS: BP 128/73
[2017-03-09 16:00] VITALS: BP 119/67
[2017-03-09 20:00] VITALS: BP 132/93
[2017-03-10] VITALS: BP 122/83
[2017-03-10 04:00] VITALS: BP 129/89
[2017-03-10] MEDS: DILTIAZEM HCL 60MG TABLET PO SCH ×3 (06:18→23:06)
[2017-03-10] MEDS: METRONIDAZOLE 250MG TABLET PO SCH ×2 (06:18→14:17)
[2017-03-10] MEDS: BLOOD SUGAR DIAGNOSTIC STRIP TEST SCH ×4 (06:19→20:52)
[2017-03-10] MEDS: INSULIN LISPRO 100 UNITS/ML SUBCUT SCH ×4 (06:22→20:52)
[2017-03-10 06:43] LABS: HEMOGLOBIN. 12.1 g/dL (14.0-18.0); MEAN CORPUSCULAR HEMOGLOBIN 22.6 pg (28.0-32.0); MEAN CORPUSCULAR VOLUME 72.8 fL (80.0-94.0); MEAN PLATELET VOLUME 9.5 fl (7.4-10.4); PLATELET 247 x1000/uL (130-400); RED BLOOD CELL COUNT 5.35 mill/uL (4.7-6.1); RED CELL DISTRIBUTION WIDTH 19.9 % (11.6-14.6)
[2017-03-10 08:00] VITALS: BP 121/85
[2017-03-10] MEDS: BUDESONIDE 0.5MG/2ML NEB HHN SCH ×2 (08:21→20:19)
[2017-03-10] MEDS: FUROSEMIDE 40MG TABLET PO SCH (08:57)
[2017-03-10] MEDS: LACTOBACILLUS GG CAPSULE PO SCH (08:57)
[2017-03-10] MEDS: CARVEDILOL 6.25 MG TABLET PO SCH ×2 (08:57→20:44)
[2017-03-10] MEDS: ZINC SULFATE 220 MG ( 50 ) CAPSULE PO SCH (08:57)
[2017-03-10] MEDS: MUPIROCIN 2% OINT 22GM NS SCH ×2 (08:57→20:50)
[2017-03-10 10:26] LABS: PLATELET ESTIMATE NORMAL
[2017-03-10 12:00] VITALS: BP 123/81
[2017-03-10 16:00] VITALS: BP 131/86
[2017-03-10 18:25] LABS: CARBON DIOXIDE 22 mEq/L (21-32); CHLORIDE 105 mEq/L (98-107)
[2017-03-10 20:00] VITALS: BP 112/73
[2017-03-10] MEDS: IPRATROPIUM/ALBUTEROL 0.5-3(2.5)MG/3ML NEB INH PRN (20:19)
[2017-03-10] MEDS: DIPHENHYDRAMINE 50MG/ML VIAL IV PRN (20:45)
[2017-03-11] VITALS: BP 126/77
[2017-03-11 04:00] VITALS: BP 121/85
[2017-03-11] MEDS: DILTIAZEM HCL 60MG TABLET PO SCH ×2 (05:40→14:00)
[2017-03-11] MEDS: INSULIN LISPRO 100 UNITS/ML SUBCUT SCH ×2 (06:48→12:06)
[2017-03-11] MEDS: BLOOD SUGAR DIAGNOSTIC STRIP TEST SCH ×2 (06:48→12:06)
[2017-03-11 08:28] VITALS: BP 111/85
[2017-03-11] MEDS: BUDESONIDE 0.5MG/2ML NEB HHN SCH (08:32)
[2017-03-11] MEDS: MUPIROCIN 2% OINT 22GM NS SCH (09:01)
[2017-03-11] MEDS: LACTOBACILLUS GG CAPSULE PO SCH (09:01)
[2017-03-11] MEDS: ZINC SULFATE 220 MG ( 50 ) CAPSULE PO SCH (09:01)
[2017-03-11] MEDS: FUROSEMIDE 40MG TABLET PO SCH (09:01)
[2017-03-11] MEDS: CARVEDILOL 6.25 MG TABLET PO SCH (09:01)
[2017-03-11 12:00] VITALS: BP 112/80
[2017-03-11 14:21] VITALS: BP 111/85
[2017-03-11 16:26] VITALS: BP 114/63
== END 2017-03-11 17:40 | DRG 194 ==
LOC: ER 18:40 → EDBEDREQ 20:26 → 3WST 21:59 → EDBEDREQSVC 22:00 → EDBEDREQTM 22:00 → ENRESERV 02-28 06:26 → 3WST 03-02 23:53 → 8WST 03-04 23:49
PROVIDERS: ADMIT Internal Medicine; ATTEND Internal Medicine
DX: I13.0 Hypertensive heart and chronic kidney disease with heart failure and stage 1 through stage 4 chronic kidney disease, or unspecified chronic kidney disease (principal); N17.0 Acute kidney failure with tubular necrosis; R65.11 Systemic inflammatory response syndrome (SIRS) of non-infectious origin with acute organ dysfunction; I27.20 Pulmonary hypertension, unspecified; I42.9 Cardiomyopathy, unspecified; I48.91 Unspecified atrial fibrillation; I48.92 Unspecified atrial flutter; E87.5 Hyperkalemia; M94.0 Chondrocostal junction syndrome [Tietze]; I50.43 Acute on chronic combined systolic (congestive) and diastolic (congestive) heart failure; I25.10 Atherosclerotic heart disease of native coronary artery without angina pectoris; E16.2 Hypoglycemia, unspecified; N18.9 Chronic kidney disease, unspecified; F10.21 Alcohol dependence, in remission; Z90.81 Acquired absence of spleen; Z99.2 Dependence on renal dialysis
CPT/HCPCS: 36415; 36600; 71045; 76770; 80048; 80053; 80061; 80305; 81001; 82375; 82575; 82805; 82962; 83880; 84439; 84443; 84484; 85025; 85610; 93005; 94640; 94664; 96374; 97162; 97166; 99291; J1200; J1815; J1940; J2270; J3490; J7030; J7611; J7620; J7626

== ENCOUNTER 2017-07-09 22:57 | Emergency (ER) | payer MEDICAID ==
[~2017-07-09] VITALS: Ht 188 cm; Wt 86.5 kg
[~2017-07-09 22:57] MED LIST changes: -AMLO10TA80 PO; +BUME1TAB4 PO; -FURO-151 PO; +ISOS40TA12 PO; +METO100T16 PO; -OR220 PO; -PULM50 HHN; +RIVA20TA PO
[2017-07-09 23:06] VITALS: BP 112/71
== END 2017-07-10 07:05 | disposition left against medical advice (07) ==
LOC: ER 23:26
DX: M79.604 Pain in right leg (principal); M79.605 Pain in left leg; I11.0 Hypertensive heart disease with heart failure; I50.9 Heart failure, unspecified; I25.10 Atherosclerotic heart disease of native coronary artery without angina pectoris; Z53.21 Procedure and treatment not carried out due to patient leaving prior to being seen by health care provider

== ENCOUNTER 2017-07-11 20:59 | Emergency (ER) | payer MEDICAID ==
[~2017-07-11] VITALS: Ht 185.4 cm; Wt 96.0 kg
[2017-07-11] MEDS ORDERED: ASPIRIN 81MG TABLET PO STA (23:34)
[2017-07-11 23:49] LABS: HEMATOCRIT. 36.6 % (42.0-52.0); HEMOGLOBIN. 11.6 g/dL (14.0-18.0); MEAN CORPUSCULAR HEMOGLOBIN 22.8 pg (28.0-32.0); MEAN PLATELET VOLUME 9.1 fl (7.4-10.4); PLATELET 310 x1000/uL (130-400); RED BLOOD CELL COUNT 5.08 mill/uL (4.7-6.1); RED CELL DISTRIBUTION WIDTH 20.1 % (11.6-14.6)
[2017-07-11 23:53] LABS: CHLORIDE 112 mEq/L (98-107)
[2017-07-11 23:56] LABS: INR 1.2; PARTIAL THROMBOPLASTIN TIME 28.2 sec (23.4-31.0); PROTHROMBIN TIME 12.7 sec (9.4-11.6)
[2017-07-12 01:25] VITALS: BP 146/97
[2017-07-12 02:20] LABS: PLATELET ESTIMATE NORMAL
== END 2017-07-12 02:58 | disposition home or self-care (01) ==
LOC: ER 21:10
DX: I48.91 Unspecified atrial fibrillation (principal); R07.9 Chest pain, unspecified; I11.0 Hypertensive heart disease with heart failure; I50.9 Heart failure, unspecified; I25.10 Atherosclerotic heart disease of native coronary artery without angina pectoris; Z79.82 Long term (current) use of aspirin; Z91.19 Patient's noncompliance with other medical treatment and regimen
CPT/HCPCS: 36415; 71045; 80053; 83690; 84484; 85025; 85610; 85730; 93005; 99285

== ENCOUNTER 2017-08-28 06:17 | Inpatient (IN) | payer MEDICAID ==
[2017-08-28] VITALS (10 sets, daily range): BP systolic 135–194; BP diastolic 56–109
[~2017-08-28] VITALS: Ht 186.7 cm; Wt 92.7 kg
[2017-08-28] MEDS ORDERED: SODIUM CHLORIDE 0.9% 1,000 ML IV ONE (06:54)
[2017-08-28] MEDS ORDERED: ASPIRIN 81MG TABLET PO ONE (07:00)
[2017-08-28] MEDS ORDERED: FAMOTIDINE 20MG/2ML VIAL IV ONE (07:00)
[2017-08-28 07:44] LABS: BASOPHILS % 1.3 % (0.0-2.0); EOSINOPHILS % 0.2 % (0.0-5.0); HEMATOCRIT. 39.2 % (42.0-52.0); HEMOGLOBIN. 12.3 g/dL (14.0-18.0); LYMPHOCYTES % 34.9 % (20.0-50.0); MEAN CORPUSCULAR HEMOGLOBIN 23.7 pg (28.0-32.0); MEAN CORPUSCULAR VOLUME 75.2 fL (80.0-94.0); MEAN PLATELET VOLUME 8.7 fl (7.4-10.4); MONOCYTES % 10.6 % (2.0-8.0); PLATELET 407 x1000/uL (130-400); RED BLOOD CELL COUNT 5.21 mill/uL (4.7-6.1); RED CELL DISTRIBUTION WIDTH 20.2 % (11.6-14.6)
[2017-08-28 07:51] LABS: INR 1.2; PROTHROMBIN TIME 12.9 sec (9.4-11.6)
[2017-08-28 07:53] LABS: CHLORIDE 112 mEq/L (98-107)
[2017-08-28 07:57] LABS: ETHANOL BLOOD < 10 mg/dL
[2017-08-28 07:58] LABS: AMMONIA 48 uMol/L (<32)
[2017-08-28] MEDS ORDERED: DILTIAZEM HCL 5MG/ML 5ML VIAL IV ONE ×2 (08:15→10:00)
[2017-08-28] MEDS ORDERED: LORAZEPAM 2MG/ML CPJ IV ONE (08:30)
[2017-08-28] MEDS ORDERED: AMIODARONE HCL 900 MG in DEXT 5% WATER 482 ML IV SCH ×4 (11:00)
[2017-08-28] MEDS ORDERED: HYDROCODONE/ACETAMINOPHEN 5/325MG TABLET PO PRN (12:45)
[2017-08-28] MEDS ORDERED: DOCUSATE SODIUM 100MG CAPSULE PO PRN (12:45)
[2017-08-28] MEDS ORDERED: MAGNESIUM/ALUMINUM HYDROXIDE/SIMETHICONE 30ML UDC PO PRN (12:45)
[2017-08-28] MEDS ORDERED: ACETAMINOPHEN 650MG/20.3ML UDC GT PRN (12:45)
[2017-08-28] MEDS ORDERED: ONDANSETRON HCL 4MG/2ML VIAL IV PRN (12:45)
[2017-08-28] MEDS ORDERED: GUAIFENESIN 200MG/10ML SUGAR FREE UDC PO PRN (12:45)
[2017-08-28] MEDS ORDERED: HYDROCODONE/ACETAMINOPHEN 10/325MG TABLET PO PRN (12:45)
[2017-08-28] MEDS ORDERED: ACETAMINOPHEN 325MG TABLET PO PRN (12:45)
[2017-08-28] MEDS ORDERED: NA PHOS,M-B/NA PHOS,DI-BA ENEMA 118ML PR PRN (12:45)
[2017-08-28] MEDS ORDERED: ACETAMINOPHEN 650MG SUPP PR PRN (12:45)
[2017-08-28] MEDS: SODIUM CHLORIDE 0.9% INJ 3ML FLUSH IVF SCH ×2 (14:00→22:00)
[2017-08-28] MEDS: METOPROLOL TARTRATE 25MG TABLET PO SCH ×2 (15:37→21:00)
[2017-08-28] MEDS: FUROSEMIDE 40MG/4ML VIAL IV SCH (15:37)
[2017-08-28] MEDS: ENOXAPARIN 40MG/0.4ML SYR SUBCUT SCH (15:38)
[2017-08-28 17:30] LABS: CREATINE KINASE MB FRACTION 0.9 ng/mL (0.5-3.6)
[2017-08-28] MEDS: AMIODARONE HCL 900 MG in DEXT 5% WATER 482 ML IV PRN (17:32)
[2017-08-29] VITALS (12 sets, daily range): BP systolic 138–163; BP diastolic 75–112
[2017-08-29] MEDS: CLONIDINE 0.1MG TABLET PO PRN (03:25)
[2017-08-29] MEDS: DIPHENHYDRAMINE 50MG/ML VIAL IV PRN (04:53)
[2017-08-29 05:23] LABS: CHLORIDE 112 mEq/L (98-107)
[2017-08-29 05:29] LABS: LDL CHOLESTEROL 40 mg/dL (5-100)
[2017-08-29 05:31] LABS: CREATINE KINASE 56 IU/L (39-308); HDL CHOLESTEROL 30 mg/dL (40-59)
[2017-08-29 05:34] LABS: CREATINE KINASE MB FRACTION < 0.5 ng/mL (0.5-3.6)
[2017-08-29] MEDS: SODIUM CHLORIDE 0.9% INJ 3ML FLUSH IVF SCH ×3 (05:55→20:52)
[2017-08-29 06:36] LABS: HEMATOCRIT. 40.9 % (42.0-52.0); HEMOGLOBIN. 12.3 g/dL (14.0-18.0); MEAN PLATELET VOLUME 9.7 fl (7.4-10.4); PLATELET 344 x1000/uL (130-400); RED BLOOD CELL COUNT 5.37 mill/uL (4.7-6.1); RED CELL DISTRIBUTION WIDTH 19.8 % (11.6-14.6)
[2017-08-29] MEDS: FUROSEMIDE 40MG/4ML VIAL IV SCH (09:00)
[2017-08-29] MEDS: ENOXAPARIN 40MG/0.4ML SYR SUBCUT SCH (09:00)
[2017-08-29] MEDS: METOPROLOL TARTRATE 25MG TABLET PO SCH ×2 (09:13→20:51)
[2017-08-29 09:56] LABS: PLATELET ESTIMATE NORMAL
[2017-08-29] MEDS: DIGOXIN 500MCG/2ML AMP IV SCH ×2 (11:15→11:59)
[2017-08-29] MEDS ORDERED: AMIODARONE HCL 900 MG in DEXT 5% WATER 482 ML IV PRN (11:15)
[2017-08-29] MEDS: AMIODARONE HCL 900 MG in DEXT 5% WATER 482 ML IV PRN (12:51)
[2017-08-29 13:09] LABS: T4 FREE 1.45 ng/dL (0.76-1.46)
[2017-08-29] MEDS: NICOTINE 14MG PATCH TD SCH (13:30)
[2017-08-29] MEDS: IPRATROPIUM BROMIDE (0.02%) 0.5MG/2.5ML NEB HHN SCH ×2 (14:40→21:06)
[2017-08-29] MEDS: RIVAROXABAN 20 MG TABLET PO SCH (16:30)
[2017-08-29] MEDS: BUDESONIDE 0.5MG/2ML NEB HHN SCH (21:06)
[2017-08-30] VITALS (12 sets, daily range): BP systolic 140–185; BP diastolic 68–117
[2017-08-30] MEDS: IPRATROPIUM BROMIDE (0.02%) 0.5MG/2.5ML NEB HHN SCH ×3 (02:05→21:29)
[2017-08-30] MEDS: IPRATROPIUM/ALBUTEROL 0.5-3(2.5)MG/3ML NEB INH PRN ×2 (04:24→14:21)
[2017-08-30] MEDS: CLONIDINE 0.1MG TABLET PO PRN ×2 (04:25→22:26)
[2017-08-30 05:24] LABS: CLARITY URINE CLEAR (CLEAR); COLOR URINE DARK YELLOW (YELLOW); KETONES URINE NEGATIVE (NEGATIVE); LEUKOCYTE ESTERASE URINE NEGATIVE (NEGATIVE); NITRITE URINE NEGATIVE (NEGATIVE); OCCULT BLOOD URINE NEGATIVE (NEGATIVE); PROTEIN URINE 1+ (NEGATIVE); SPECIFIC GRAVITY URINE 1.023 (1.005-1.030)
[2017-08-30] MEDS: SODIUM CHLORIDE 0.9% INJ 3ML FLUSH IVF SCH (06:07)
[2017-08-30 06:33] LABS: *AMPHETAMINES SCREEN URINE NEGATIVE (NEGATIVE); *BARBITURATES SCREEN URINE NEGATIVE (NEGATIVE)
[2017-08-30 06:34] LABS: *BENZODIAZEPINES SCREEN URINE NEGATIVE (NEGATIVE); *COCAINE SCREEN URINE PRESUMTIVE POSITIVE (NEGATIVE); METHADONE URINE SCREEN NEGATIVE (NEGATIVE); OPIATES URINE SCREEN NEGATIVE (NEGATIVE)
[2017-08-30 06:35] LABS: CANNABINOID URINE SCREEN NEGATIVE (NEGATIVE); PHENCYCLIDINE URINE SCREEN NEGATIVE (NEGATIVE)
[2017-08-30] MEDS: BUDESONIDE 0.5MG/2ML NEB HHN SCH ×2 (08:17→21:30)
[2017-08-30] MEDS: METOPROLOL TARTRATE 25MG TABLET PO SCH (09:00)
[2017-08-30] MEDS: FUROSEMIDE 40MG/4ML VIAL IV SCH (09:00)
[2017-08-30] MEDS: NICOTINE 14MG PATCH TD SCH (09:00)
[2017-08-30 09:10] LABS: CREATINE KINASE 49 IU/L (39-308)
[2017-08-30] MEDS ORDERED: DIGOXIN 500MCG/2ML AMP ONE (10:42)
[2017-08-30] MEDS ORDERED: DIGOXIN 500MCG/2ML AMP IV NR ×3 (11:20→22:00)
[2017-08-30] MEDS ORDERED: METO100T16 PO (12:41)
[2017-08-30] MEDS ORDERED: FURO-151 MT (12:41)
[2017-08-30] MEDS: RIVAROXABAN 20 MG TABLET PO SCH (17:20)
[2017-08-30] MEDS: DIPHENHYDRAMINE 50MG/ML VIAL IV PRN (20:52)
[2017-08-30] MEDS: METOPROLOL TARTRATE 50MG TABLET PO SCH (20:52)
[2017-08-31] VITALS (7 sets, daily range): BP systolic 155–173; BP diastolic 80–130
[2017-08-31] MEDS: IPRATROPIUM/ALBUTEROL 0.5-3(2.5)MG/3ML NEB INH PRN (01:17)
[2017-08-31] MEDS: CLONIDINE 0.1MG TABLET PO PRN (04:42)
[2017-08-31 06:57] LABS: CHLORIDE 111 mEq/L (98-107)
[2017-08-31] MEDS: FUROSEMIDE 40MG/4ML VIAL IV SCH (08:35)
[2017-08-31] MEDS: METOPROLOL TARTRATE 50MG TABLET PO SCH (08:35)
[2017-08-31] MEDS: NICOTINE 14MG PATCH TD SCH (08:35)
[2017-08-31] MEDS: IPRATROPIUM BROMIDE (0.02%) 0.5MG/2.5ML NEB HHN SCH (09:06)
[2017-08-31] MEDS: BUDESONIDE 0.5MG/2ML NEB HHN SCH (09:06)
[2017-08-31 14:11] LABS: BASOPHILS % 0.4 % (0.0-2.0); EOSINOPHILS % 8.3 % (0.0-5.0); HEMATOCRIT. 38.4 % (42.0-52.0); HEMOGLOBIN. 11.9 g/dL (14.0-18.0); LYMPHOCYTES % 33.9 % (20.0-50.0); MEAN CORPUSCULAR HEMOGLOBIN 23.6 pg (28.0-32.0); MEAN CORPUSCULAR VOLUME 75.8 fL (80.0-94.0); MEAN PLATELET VOLUME 8.6 fl (7.4-10.4); NEUTROPHILS % 47.4 % (40.0-76.0); PLATELET 374 x1000/uL (130-400); RED BLOOD CELL COUNT 5.07 mill/uL (4.7-6.1); RED CELL DISTRIBUTION WIDTH 19.6 % (11.6-14.6)
[2017-08-31 14:13] LABS: CHLORIDE 109 mEq/L (98-107)
== END 2017-08-31 14:55 | disposition home or self-care (01) | DRG 133 ==
LOC: ER 06:17 → 3WST 12:12 → ENRESERV 12:43
PROVIDERS: ADMIT Family Medicine; ATTEND Family Medicine
DX: J96.00 Acute respiratory failure, unspecified whether with hypoxia or hypercapnia (principal); I50.43 Acute on chronic combined systolic (congestive) and diastolic (congestive) heart failure; I48.91 Unspecified atrial fibrillation; I42.9 Cardiomyopathy, unspecified; J44.9 Chronic obstructive pulmonary disease, unspecified; F14.10 Cocaine abuse, uncomplicated; B19.20 Unspecified viral hepatitis C without hepatic coma; G40.909 Epilepsy, unspecified, not intractable, without status epilepticus; I11.0 Hypertensive heart disease with heart failure; G89.29 Other chronic pain; F17.210 Nicotine dependence, cigarettes, uncomplicated; F10.10 Alcohol abuse, uncomplicated; E78.5 Hyperlipidemia, unspecified; E66.9 Obesity, unspecified; Z99.3 Dependence on wheelchair; Z91.11 Patient's noncompliance with dietary regimen; Z59.0 Homelessness; Z90.81 Acquired absence of spleen; Z79.899 Other long term (current) drug therapy; Z68.26 Body mass index [BMI] 26.0-26.9, adult
CPT/HCPCS: 36415; 71045; 80048; 80053; 80061; 80305; 81003; 82140; 82550; 82553; 83036; 83605; 83690; 83880; 84439; 84443; 84484; 85025; 85379; 85610; 87040; 87077; 87086; 87186; 93005; 93306; 96361; 96374; 96375; 96376; 99291; G0482; J0282; J1160; J1200; J1650; J1940; J2060; J3490; J7030; J7060; J7620; J7626

== ENCOUNTER 2017-10-12 01:21 | Emergency (ER) | payer MEDICAID ==
[~2017-10-12] VITALS: Ht 180.3 cm; Wt 68.0 kg
[~2017-10-12 01:21] MED LIST changes: +FURO-151 MT
[2017-10-12] MEDS: METOPROLOL TARTRATE 5MG/5ML VIAL IV SCH ×3 (03:04→05:08)
[2017-10-12 05:45] VITALS: BP 137/101
== END 2017-10-12 06:06 | disposition home or self-care (01) ==
LOC: ER 01:21
DX: I48.91 Unspecified atrial fibrillation (principal); Z91.14 Patient's other noncompliance with medication regimen; Z79.899 Other long term (current) drug therapy
CPT/HCPCS: 71045; 93005; 96374; 99284; J3490; Z7610

== ENCOUNTER 2017-10-25 08:26 | Inpatient (IN) | payer MEDICAID ==
[~2017-10-25] VITALS: Ht 172.7 cm; Wt 72.0 kg
[2017-10-25] MEDS: METOPROLOL TARTRATE 5MG/5ML VIAL IV SCH ×3 (09:41→10:25)
[2017-10-25 09:46] LABS: HEMATOCRIT. 47.1 % (42.0-52.0); HEMOGLOBIN. 14.9 g/dL (14.0-18.0); MEAN CORPUSCULAR HEMOGLOBIN 23.7 pg (28.0-32.0); MEAN CORPUSCULAR VOLUME 75.2 fL (80.0-94.0); MEAN PLATELET VOLUME 9.4 fl (7.4-10.4); PLATELET 327 x1000/uL (130-400); RED BLOOD CELL COUNT 6.27 mill/uL (4.7-6.1); RED CELL DISTRIBUTION WIDTH 18.2 % (11.6-14.6)
[2017-10-25 09:54] LABS: INR 1.3; PROTHROMBIN TIME 12.6 sec (9.1-11.1)
[2017-10-25 10:35] LABS: PLATELET ESTIMATE NORMAL
[2017-10-25 10:47] LABS: CHLORIDE 111 mEq/L (98-107)
[2017-10-25 10:50] LABS: ETHANOL BLOOD < 10 mg/dL
[2017-10-25 16:59] LABS: *AMPHETAMINES SCREEN URINE NEGATIVE (NEGATIVE); *BENZODIAZEPINES SCREEN URINE NEGATIVE (NEGATIVE); *COCAINE SCREEN URINE PRESUMTIVE POSITIVE (NEGATIVE); CANNABINOID URINE SCREEN PRESUMTIVE POSITIVE (NEGATIVE)
[2017-10-25 17:00] LABS: METHADONE URINE SCREEN NEGATIVE (NEGATIVE); OPIATES URINE SCREEN NEGATIVE (NEGATIVE); PHENCYCLIDINE URINE SCREEN NEGATIVE (NEGATIVE)
[2017-10-25 17:02] LABS: *BARBITURATES SCREEN URINE NEGATIVE (NEGATIVE)
[2017-10-25 17:30] VITALS: BP 132/92
[2017-10-25] MEDS: LOSARTAN POTASSIUM 50 MG TABLET PO SCH (17:30)
[2017-10-25] MEDS: FUROSEMIDE 40MG/4ML VIAL IVP SCH ×2 (17:30→18:00)
[2017-10-25] MEDS: DIGOXIN 500MCG/2ML AMP IV NR ×3 (17:30→18:02)
[2017-10-25] MEDS ORDERED: VERAPAMIL HCL 2.5 MG/1 ML 2ML VIAL IV PRN (17:30)
[2017-10-25] MEDS: RIVAROXABAN 20 MG TABLET PO SCH (18:00)
[2017-10-25] MEDS ORDERED: LORAZEPAM 2MG/ML CPJ IV PRN (18:30)
[2017-10-25] MEDS ORDERED: ACETAMINOPHEN 650MG SUPP PR PRN (18:30)
[2017-10-25] MEDS ORDERED: DIGOXIN 500MCG/2ML AMP IV NR ×2 (19:15→23:30)
[2017-10-25] MEDS: NITROGLYCERIN OINT 1GM/INCH UDPKT TD SCH (22:17)
[2017-10-26] MEDS ORDERED: DIGOXIN 500MCG/2ML AMP IV NR (05:30)
[2017-10-26] MEDS: NITROGLYCERIN OINT 1GM/INCH UDPKT TD SCH (06:50)
[2017-10-26 07:38] LABS: HEMATOCRIT. 37.2 % (42.0-52.0); HEMOGLOBIN. 11.9 g/dL (14.0-18.0); MEAN CORPUSCULAR HEMOGLOBIN 23.6 pg (28.0-32.0); MEAN CORPUSCULAR VOLUME 73.5 fL (80.0-94.0); MEAN PLATELET VOLUME 9.2 fl (7.4-10.4); PLATELET 346 x1000/uL (130-400); RED BLOOD CELL COUNT 5.06 mill/uL (4.7-6.1); RED CELL DISTRIBUTION WIDTH 17.4 % (11.6-14.6)
[2017-10-26 07:41] LABS: CHLORIDE 110 mEq/L (98-107)
[2017-10-26 08:30] VITALS: BP 159/115
[2017-10-26] MEDS: LOSARTAN POTASSIUM 50 MG TABLET PO SCH ×2 (09:20→21:00)
[2017-10-26] MEDS: FUROSEMIDE 40MG/4ML VIAL IVP SCH ×3 (09:21→17:15)
[2017-10-26 11:52] LABS: NUCLEATED RED BLOOD CELLS 1 /100 WBC; PLATELET ESTIMATE NORMAL
[2017-10-26] MEDS: DILTIAZEM HCL 60MG TABLET PO SCH ×2 (14:00→21:25)
[2017-10-26 16:00] VITALS: BP 128/76
[2017-10-26] MEDS: RIVAROXABAN 20 MG TABLET PO SCH (17:00)
[2017-10-27] MEDS: FUROSEMIDE 40MG/4ML VIAL IVP SCH ×3 (06:38→16:52)
[2017-10-27] MEDS: DILTIAZEM HCL 60MG TABLET PO SCH ×2 (06:39→14:18)
[2017-10-27 07:14] LABS: HEMATOCRIT. 38.5 % (42.0-52.0); HEMOGLOBIN. 11.9 g/dL (14.0-18.0); MEAN CORPUSCULAR HEMOGLOBIN 23.3 pg (28.0-32.0); MEAN PLATELET VOLUME 9.1 fl (7.4-10.4); PLATELET 377 x1000/uL (130-400); RED BLOOD CELL COUNT 5.13 mill/uL (4.7-6.1); RED CELL DISTRIBUTION WIDTH 17.2 % (11.6-14.6)
[2017-10-27 07:37] LABS: CHLORIDE 109 mEq/L (98-107)
[2017-10-27 08:00] VITALS: BP 149/98
[2017-10-27] MEDS: LOSARTAN POTASSIUM 50 MG TABLET PO SCH (09:00)
[2017-10-27 11:54] LABS: PLATELET ESTIMATE NORMAL
[2017-10-27 12:00] VITALS: BP 153/96
[2017-10-27] MEDS ORDERED: DILT60TA35 PO (13:55)
[2017-10-27] MEDS ORDERED: MAGNESIUM 2 G PREMIX 50 ML IV ONE (14:00)
[2017-10-27] MEDS ORDERED: MAGNESIUM OXIDE 400MG TABLET PO SCH (14:00)
[2017-10-27 15:10] VITALS: BP 150/96
[2017-10-27 16:00] VITALS: BP 159/111
[2017-10-27] MEDS: RIVAROXABAN 20 MG TABLET PO SCH (16:51)
[2017-10-27 17:00] VITALS: BP 152/98
== END 2017-10-27 18:10 | disposition home or self-care (01) | DRG 194 ==
LOC: ER 08:26 → 8WST 14:02 → EDBEDREQ 14:06 → EDBEDREQTM 14:06 → ENRESERV 16:19 → 8WST 17:40
PROVIDERS: ADMIT Emergency Medicine; ATTEND Emergency Medicine
DX: I11.0 Hypertensive heart disease with heart failure (principal); E46 Unspecified protein-calorie malnutrition; I27.20 Pulmonary hypertension, unspecified; I38 Endocarditis, valve unspecified; E83.42 Hypomagnesemia; I48.91 Unspecified atrial fibrillation; I42.0 Dilated cardiomyopathy; B19.20 Unspecified viral hepatitis C without hepatic coma; D50.9 Iron deficiency anemia, unspecified; F10.20 Alcohol dependence, uncomplicated; I50.23 Acute on chronic systolic (congestive) heart failure; F12.10 Cannabis abuse, uncomplicated; F14.10 Cocaine abuse, uncomplicated; K70.30 Alcoholic cirrhosis of liver without ascites; I25.10 Atherosclerotic heart disease of native coronary artery without angina pectoris; Z53.29 Procedure and treatment not carried out because of patient's decision for other reasons; Z59.0 Homelessness; Z79.01 Long term (current) use of anticoagulants; Z91.14 Patient's other noncompliance with medication regimen; Z79.899 Other long term (current) drug therapy; Z68.24 Body mass index [BMI] 24.0-24.9, adult
CPT/HCPCS: 36415; 71045; 80048; 80053; 80305; 83735; 83880; 84443; 84484; 85025; 85610; 93005; 96374; 99285; G0482; J1160; J1940; J3475; J3490

== ENCOUNTER 2017-10-30 19:21 | Emergency (ER) | payer MEDICAID ==
[~2017-10-30] VITALS: Ht 162.6 cm; Wt 68.5 kg
[2017-10-30] MEDS ORDERED: DILTIAZEM HCL 5MG/ML 5ML VIAL IV ONE (23:00)
[2017-10-30 23:58] LABS: HEMATOCRIT. 42.9 % (42.0-52.0); HEMOGLOBIN. 13.5 g/dL (14.0-18.0); MEAN CORPUSCULAR HEMOGLOBIN 23.5 pg (28.0-32.0); MEAN CORPUSCULAR VOLUME 74.4 fL (80.0-94.0); MEAN PLATELET VOLUME 8.7 fl (7.4-10.4); PLATELET 400 x1000/uL (130-400); RED BLOOD CELL COUNT 5.77 mill/uL (4.7-6.1); RED CELL DISTRIBUTION WIDTH 17.3 % (11.6-14.6)
[2017-10-31 00:13] LABS: CHLORIDE 107 mEq/L (98-107)
[2017-10-31 01:00] LABS: ATYPICAL LYMPHOCYTES 2; NUCLEATED RED BLOOD CELLS 1 /100 WBC; PLATELET ESTIMATE NORMAL
[2017-10-31] MEDS ORDERED: PROPRANOLOL HCL 1MG/ML AMPULE IV ONE (01:15)
[2017-10-31] MEDS ORDERED: PROPRANOLOL HCL 1MG/ML AMPULE IV SCH (02:00)
[2017-10-31 05:44] VITALS: BP 138/99
== END 2017-10-31 06:02 | disposition home or self-care (01) ==
LOC: ER 19:21
DX: R07.9 Chest pain, unspecified (principal); M79.662 Pain in left lower leg; M79.661 Pain in right lower leg; I48.91 Unspecified atrial fibrillation; I51.9 Heart disease, unspecified; I10 Essential (primary) hypertension; F14.10 Cocaine abuse, uncomplicated; Z79.899 Other long term (current) drug therapy
CPT/HCPCS: 36415; 71045; 80053; 83880; 84484; 85025; 93005; 96374; 99285; J1800; Z7610

== ENCOUNTER 2017-10-31 07:29 | Emergency (ER) | payer MEDICAID ==
[~2017-10-31] VITALS: Ht 172.7 cm; Wt 76.0 kg
[2017-10-31] MEDS ORDERED: ASPIRIN 81MG TABLET PO ONE (08:00)
[2017-10-31] MEDS ORDERED: HYDROCODONE/ACETAMINOPHEN 5/325MG TABLET PO ONE (08:00)
[2017-10-31 09:30] VITALS: BP 157/116
== END 2017-10-31 10:36 | disposition home or self-care (01) ==
LOC: ER 08:30
DX: I48.91 Unspecified atrial fibrillation (principal); I10 Essential (primary) hypertension; Z79.899 Other long term (current) drug therapy; Z98.890 Other specified postprocedural states
CPT/HCPCS: 71045; 93005; 99284

== ENCOUNTER 2017-11-12 00:47 | Emergency (ER) | payer MEDICAID ==
[~2017-11-12] VITALS: Ht 170.2 cm; Wt 69.0 kg
[2017-11-12] MEDS ORDERED: ASPIRIN 81MG TABLET PO ONE (06:45)
[2017-11-12 09:00] LABS: *AMPHETAMINES SCREEN URINE NEGATIVE (NEGATIVE); *BARBITURATES SCREEN URINE NEGATIVE (NEGATIVE); *BENZODIAZEPINES SCREEN URINE NEGATIVE (NEGATIVE); *COCAINE SCREEN URINE PRESUMTIVE POSITIVE (NEGATIVE)
[2017-11-12 09:01] LABS: CANNABINOID URINE SCREEN NEGATIVE (NEGATIVE); METHADONE URINE SCREEN NEGATIVE (NEGATIVE); OPIATES URINE SCREEN NEGATIVE (NEGATIVE); PHENCYCLIDINE URINE SCREEN NEGATIVE (NEGATIVE)
[2017-11-12 09:31] VITALS: BP 164/100
== END 2017-11-12 09:38 | disposition left against medical advice (07) ==
LOC: ER 00:53
DX: R07.9 Chest pain, unspecified (principal); Z76.5 Malingerer [conscious simulation]; I51.9 Heart disease, unspecified; I10 Essential (primary) hypertension; Z99.3 Dependence on wheelchair; Z79.899 Other long term (current) drug therapy
CPT/HCPCS: 71045; 80305; 93005; 99285

== ENCOUNTER 2017-11-16 04:12 | Inpatient (IN) | payer MEDICAID ==
[~2017-11-16] VITALS: Ht 175.3 cm; Wt 77.1 kg
[2017-11-16] MEDS ORDERED: SODIUM CHLORIDE 0.9% 1,000 ML IV ONE (04:47)
[2017-11-16] MEDS ORDERED: LORAZEPAM 2MG/ML CPJ IV ONE ×2 (05:00→06:30)
[2017-11-16] MEDS ORDERED: ASPIRIN 81MG TABLET PO ONE (05:00)
[2017-11-16] MEDS ORDERED: CLONIDINE 0.1MG TABLET PO ONE (05:00)
[2017-11-16 06:02] LABS: CHLORIDE 109 mEq/L (98-107)
[2017-11-16 06:04] LABS: INR 1.2; PARTIAL THROMBOPLASTIN TIME 32.9 sec (23.4-31.0); PROTHROMBIN TIME 12.1 sec (9.1-11.1)
[2017-11-16 06:10] LABS: ETHANOL BLOOD < 10 mg/dL
[2017-11-16 06:12] LABS: HEMATOCRIT. 45.3 % (42.0-52.0); HEMOGLOBIN. 14.1 g/dL (14.0-18.0); MEAN CORPUSCULAR VOLUME 73.8 fL (80.0-94.0); MEAN PLATELET VOLUME 8.6 fl (7.4-10.4); PLATELET 462 x1000/uL (130-400); RED BLOOD CELL COUNT 6.13 mill/uL (4.7-6.1); RED CELL DISTRIBUTION WIDTH 18.1 % (11.6-14.6)
[2017-11-16] MEDS ORDERED: VERAPAMIL HCL 2.5 MG/1 ML 2ML VIAL IV ONE (06:30)
[2017-11-16 07:05] LABS: PLATELET ESTIMATE SLIGHTL
[2017-11-16] MEDS ORDERED: ONDANSETRON HCL 4MG/2ML INJ IV PRN (09:45)
[2017-11-16] MEDS ORDERED: ACETAMINOPHEN 650MG SUPP PR PRN (09:45)
[2017-11-16] MEDS ORDERED: ACETAMINOPHEN 325MG TABLET PO PRN (09:45)
[2017-11-16] MEDS ORDERED: ACETAMINOPHEN 650MG/20.3ML UDC GT PRN (09:45)
[2017-11-16] MEDS ORDERED: MAGNESIUM/ALUMINUM HYDROXIDE/SIMETHICONE 30ML UDC PO PRN (09:45)
[2017-11-16] MEDS ORDERED: VERAPAMIL HCL 2.5 MG/1 ML 2ML VIAL IV PRN (12:45)
[2017-11-16] MEDS: FUROSEMIDE 40MG/4ML VIAL IVP SCH ×2 (16:08→21:10)
[2017-11-16 16:25] LABS: CREATINE KINASE MB FRACTION 1.9 ng/mL (0.5-3.6)
[2017-11-16] MEDS: DIGOXIN 500MCG/2ML AMP IV SCH (17:52)
[2017-11-16] MEDS: ENOXAPARIN 80MG/0.8ML SYR SUBCUT SCH (17:53)
[2017-11-16] MEDS: DILTIAZEM HCL 60MG TABLET PO SCH ×2 (17:53→21:10)
[2017-11-16 18:18] VITALS: BP 146/89
[2017-11-16 20:00] VITALS: BP 155/99
[2017-11-16] MEDS: HYDROCODONE/ACETAMINOPHEN 5/325MG TABLET PO PRN (21:09)
[2017-11-17] VITALS (7 sets, daily range): BP systolic 123–148; BP diastolic 65–90
[2017-11-17] MEDS: FUROSEMIDE 40MG/4ML VIAL IVP SCH (05:11)
[2017-11-17] MEDS: DILTIAZEM HCL 60MG TABLET PO SCH ×3 (05:12→18:27)
[2017-11-17] MEDS: ENOXAPARIN 80MG/0.8ML SYR SUBCUT SCH ×2 (05:12→18:00)
[2017-11-17 07:09] LABS: HEMATOCRIT. 39.4 % (42.0-52.0); HEMOGLOBIN. 12.6 g/dL (14.0-18.0); MEAN CORPUSCULAR HEMOGLOBIN 23.4 pg (28.0-32.0); MEAN CORPUSCULAR VOLUME 73.4 fL (80.0-94.0); MEAN PLATELET VOLUME 9.1 fl (7.4-10.4); PLATELET 499 x1000/uL (130-400); RED BLOOD CELL COUNT 5.37 mill/uL (4.7-6.1); RED CELL DISTRIBUTION WIDTH 17.7 % (11.6-14.6)
[2017-11-17 07:18] LABS: CHLORIDE 109 mEq/L (98-107)
[2017-11-17 07:26] LABS: LDL CHOLESTEROL 64 mg/dL (5-100)
[2017-11-17 07:27] LABS: HDL CHOLESTEROL 33 mg/dL (40-59)
[2017-11-17 07:29] LABS: CREATINE KINASE MB FRACTION < 1.0 ng/mL (0.5-3.6)
[2017-11-17 07:30] LABS: CREATINE KINASE 51 IU/L (39-308)
[2017-11-17] MEDS: POTASSIUM CHLORIDE 20MEQ TABLET SR PO SCH (15:46)
[2017-11-17 16:19] LABS: PLATELET ESTIMATE INCREASED
[2017-11-17] MEDS: DIGOXIN 500MCG/2ML AMP IV SCH (18:26)
[2017-11-17 18:35] LABS: CLARITY URINE CLEAR (CLEAR); COLOR URINE DARK YELLOW (YELLOW); KETONES URINE NEGATIVE (NEGATIVE); LEUKOCYTE ESTERASE URINE NEGATIVE (NEGATIVE); NITRITE URINE NEGATIVE (NEGATIVE); OCCULT BLOOD URINE NEGATIVE (NEGATIVE); PH URINE 5.5 (4.5-8.0); PROTEIN URINE NEGATIVE (NEGATIVE)
[2017-11-17 18:43] LABS: *AMPHETAMINES SCREEN URINE NEGATIVE (NEGATIVE); *BARBITURATES SCREEN URINE NEGATIVE (NEGATIVE); *BENZODIAZEPINES SCREEN URINE NEGATIVE (NEGATIVE); *COCAINE SCREEN URINE PRESUMTIVE POSITIVE (NEGATIVE); METHADONE URINE SCREEN NEGATIVE (NEGATIVE); OPIATES URINE SCREEN PRESUMTIVE POSITIVE (NEGATIVE)
[2017-11-17 18:44] LABS: CANNABINOID URINE SCREEN NEGATIVE (NEGATIVE); PHENCYCLIDINE URINE SCREEN NEGATIVE (NEGATIVE)
[2017-11-18] VITALS: BP 151/89
[2017-11-18] MEDS: DILTIAZEM HCL 60MG TABLET PO SCH ×5 (00:30→20:18)
[2017-11-18] MEDS: ENOXAPARIN 80MG/0.8ML SYR SUBCUT SCH ×2 (06:00→18:00)
[2017-11-18 07:16] LABS: HEMATOCRIT. 37.8 % (42.0-52.0); HEMOGLOBIN. 11.9 g/dL (14.0-18.0); MEAN CORPUSCULAR HEMOGLOBIN 22.9 pg (28.0-32.0); MEAN CORPUSCULAR VOLUME 72.9 fL (80.0-94.0); MEAN PLATELET VOLUME 8.9 fl (7.4-10.4); PLATELET 491 x1000/uL (130-400); RED BLOOD CELL COUNT 5.19 mill/uL (4.7-6.1); RED CELL DISTRIBUTION WIDTH 17.8 % (11.6-14.6)
[2017-11-18 08:00] VITALS: BP 138/88
[2017-11-18] MEDS: POTASSIUM CHLORIDE 20MEQ TABLET SR PO SCH (08:53)
[2017-11-18 09:13] LABS: CHLORIDE 104 mEq/L (98-107)
[2017-11-18 09:21] LABS: PHOSPHORUS 2.6 mg/dL (2.5-4.9)
[2017-11-18] MEDS: FUROSEMIDE 40MG/4ML VIAL IVP SCH ×2 (11:30→13:42)
[2017-11-18 11:47] LABS: PLATELET ESTIMATE INCREASED
[2017-11-18 12:00] VITALS: BP 144/95
[2017-11-18 16:00] VITALS: BP 129/67
[2017-11-18] MEDS: DIGOXIN 500MCG/2ML AMP IV SCH (18:00)
[2017-11-18] MEDS: HYDROCODONE/ACETAMINOPHEN 5/325MG TABLET PO PRN (20:18)
[2017-11-18] MEDS: METHIMAZOLE 5MG TABLET PO SCH (20:22)
[2017-11-19] VITALS: BP 143/86
[2017-11-19 04:00] VITALS: BP 140/70
[2017-11-19] MEDS: ENOXAPARIN 80MG/0.8ML SYR SUBCUT SCH (05:44)
[2017-11-19] MEDS: DILTIAZEM HCL 60MG TABLET PO SCH ×2 (05:44→12:00)
[2017-11-19 08:00] VITALS: BP 127/80
[2017-11-19 12:00] VITALS: BP 140/91
[2017-11-19] MEDS: POTASSIUM CHLORIDE 20MEQ TABLET SR PO SCH (12:02)
[2017-11-19] MEDS: FUROSEMIDE 40MG/4ML VIAL IVP SCH (12:02)
[2017-11-19] MEDS: METHIMAZOLE 5MG TABLET PO SCH (12:02)
[2017-11-19] MEDS ORDERED: POTASSIUM CHLORIDE 20MEQ TABLET SR PO NR (14:30)
[2017-11-19 16:00] VITALS: BP 127/97
[2017-11-19 16:16] LABS: HEMATOCRIT. 38.4 % (42.0-52.0); MEAN CORPUSCULAR HEMOGLOBIN 22.8 pg (28.0-32.0); MEAN CORPUSCULAR VOLUME 73.2 fL (80.0-94.0); MEAN PLATELET VOLUME 8.7 fl (7.4-10.4); PLATELET 502 x1000/uL (130-400); RED BLOOD CELL COUNT 5.25 mill/uL (4.7-6.1); RED CELL DISTRIBUTION WIDTH 17.7 % (11.6-14.6)
[2017-11-19 16:35] LABS: CHLORIDE 104 mEq/L (98-107)
[2017-11-19 16:41] LABS: PHOSPHORUS 2.5 mg/dL (2.5-4.9)
[2017-11-19] MEDS ORDERED: DIGO125T82 MT (16:50)
[2017-11-19] MEDS ORDERED: TAP5 PO (16:50)
[2017-11-19] MEDS ORDERED: DILT60TA35 PO (16:50)
[2017-11-19] MEDS ORDERED: POTA20TA82 PO (16:50)
[2017-11-19 17:16] VITALS: BP 140/91
[2017-11-19 20:40] LABS: ATYPICAL LYMPHOCYTES 2; PLATELET ESTIMATE INCREASED
[2017-11-20] MEDS ORDERED: METHIMAZOLE 5MG TABLET PO SCH (09:00)
== END 2017-11-19 22:01 | disposition home or self-care (01) | DRG 194 ==
LOC: ER 04:12 → 7WST 06:18 → EDBEDREQ 06:22 → EDBEDREQTM 06:22 → ENRESERV 15:49
PROVIDERS: ADMIT Internal Medicine; ATTEND Internal Medicine
DX: I11.0 Hypertensive heart disease with heart failure (principal); I27.20 Pulmonary hypertension, unspecified; I42.9 Cardiomyopathy, unspecified; E44.1 Mild protein-calorie malnutrition; I08.1 Rheumatic disorders of both mitral and tricuspid valves; I48.2 Chronic atrial fibrillation; D72.829 Elevated white blood cell count, unspecified; E05.90 Thyrotoxicosis, unspecified without thyrotoxic crisis or storm; F14.10 Cocaine abuse, uncomplicated; Z59.0 Homelessness; Z91.19 Patient's noncompliance with other medical treatment and regimen; Z79.899 Other long term (current) drug therapy; I50.33 Acute on chronic diastolic (congestive) heart failure
CPT/HCPCS: 36415; 71045; 80048; 80053; 80061; 80305; 81003; 82550; 82553; 83520; 83605; 83690; 83735; 83880; 84100; 84439; 84443; 84481; 84484; 85025; 85610; 85730; 86376; 87040; 87086; 93005; 93970; 96361; 96374; 96375; 96376; 99285; G0482; J1160; J1650; J1940; J2060; J3490; J7030

== ENCOUNTER 2017-11-27 22:37 | Inpatient (IN) | payer MEDICAID ==
[~2017-11-27] VITALS: Ht 186.7 cm; Wt 81.6 kg
[~2017-11-27 22:37] MED LIST changes: +DIGO125T82 MT; +DILT60TA35 PO; -ISOS40TA12 PO; -METO100T16 PO; +POTA20TA82 PO; +TAP5 PO
[2017-11-28] MEDS ORDERED: DILTIAZEM HCL 60MG TABLET PO ONE (00:30)
[2017-11-28 00:56] LABS: HEMATOCRIT. 43.7 % (42.0-52.0); HEMOGLOBIN. 13.3 g/dL (14.0-18.0); MEAN CORPUSCULAR HEMOGLOBIN 22.8 pg (28.0-32.0); MEAN CORPUSCULAR VOLUME 74.7 fL (80.0-94.0); MEAN PLATELET VOLUME 8.7 fl (7.4-10.4); PLATELET 468 x1000/uL (130-400); RED BLOOD CELL COUNT 5.84 mill/uL (4.7-6.1); RED CELL DISTRIBUTION WIDTH 18.3 % (11.6-14.6)
[2017-11-28 03:01] LABS: CHLORIDE 107 mEq/L (98-107)
[2017-11-28 03:33] LABS: NUCLEATED RED BLOOD CELLS 1 /100 WBC
[2017-11-28 03:34] LABS: PLATELET ESTIMATE SLIGHTLY INCREASED
[2017-11-28] MEDS ORDERED: DIGOXIN 500MCG/2ML AMP IV SCH (04:00)
[2017-11-28] MEDS ORDERED: FUROSEMIDE 40MG/4ML VIAL IVP NR (04:45)
[2017-11-28] MEDS ORDERED: ASPIRIN 81MG TABLET PO NR (05:00)
[2017-11-28 05:48] LABS: *AMPHETAMINES SCREEN URINE PRESUMTIVE POSITIVE (NEGATIVE); *BARBITURATES SCREEN URINE NEGATIVE (NEGATIVE); *BENZODIAZEPINES SCREEN URINE NEGATIVE (NEGATIVE); *COCAINE SCREEN URINE PRESUMTIVE POSITIVE (NEGATIVE); CANNABINOID URINE SCREEN NEGATIVE (NEGATIVE); METHADONE URINE SCREEN NEGATIVE (NEGATIVE); OPIATES URINE SCREEN NEGATIVE (NEGATIVE); PHENCYCLIDINE URINE SCREEN NEGATIVE (NEGATIVE)
[2017-11-28] MEDS ORDERED: ACETAMINOPHEN 650MG/20.3ML UDC GT PRN (16:45)
[2017-11-28] MEDS ORDERED: ONDANSETRON HCL 4MG/2ML INJ IV PRN (16:45)
[2017-11-28] MEDS ORDERED: DOCUSATE SODIUM 100MG CAPSULE PO PRN (16:45)
[2017-11-28] MEDS ORDERED: ACETAMINOPHEN 325MG TABLET PO PRN (16:45)
[2017-11-28] MEDS ORDERED: ACETAMINOPHEN 650MG SUPP PR PRN (16:45)
[2017-11-28] MEDS ORDERED: CLONIDINE 0.1MG TABLET PO PRN (16:45)
[2017-11-28] MEDS ORDERED: GUAIFENESIN 200MG/10ML SUGAR FREE UDC PO PRN (16:45)
[2017-11-28] MEDS ORDERED: IPRATROPIUM/ALBUTEROL 0.5-3(2.5)MG/3ML NEB INH PRN (16:45)
[2017-11-28] MEDS ORDERED: NA PHOS,M-B/NA PHOS,DI-BA ENEMA 118ML PR PRN (16:45)
[2017-11-28] MEDS ORDERED: MAGNESIUM/ALUMINUM HYDROXIDE/SIMETHICONE 30ML UDC PO PRN (16:45)
[2017-11-28] MEDS ORDERED: MEDICATION NOT ON FORMULARY EA (Diltiazem HCl (Cardizem) 60 MG) PO SCH (18:00)
[2017-11-28] MEDS: METHIMAZOLE 5MG TABLET PO SCH (21:09)
[2017-11-29] VITALS (7 sets, daily range): BP systolic 126–178; BP diastolic 85–104
[2017-11-29 06:20] LABS: HEMATOCRIT. 38.2 % (42.0-52.0); HEMOGLOBIN. 12.2 g/dL (14.0-18.0); MEAN CORPUSCULAR HEMOGLOBIN 23.3 pg (28.0-32.0); MEAN CORPUSCULAR VOLUME 73.2 fL (80.0-94.0); PLATELET 469 x1000/uL (130-400); RED BLOOD CELL COUNT 5.22 mill/uL (4.7-6.1); RED CELL DISTRIBUTION WIDTH 17.8 % (11.6-14.6)
[2017-11-29] MEDS: SODIUM CHLORIDE 0.9% INJ 3ML FLUSH IVF SCH ×2 (06:54→13:11)
[2017-11-29] MEDS: FUROSEMIDE 40MG/4ML VIAL IV SCH ×2 (06:54→16:46)
[2017-11-29 07:32] LABS: CHLORIDE 111 mEq/L (98-107)
[2017-11-29 07:39] LABS: CREATINE KINASE 49 IU/L (39-308); CREATINE KINASE MB FRACTION 1.1 ng/mL (0.5-3.6); HDL CHOLESTEROL 42 mg/dL (40-59); LDL CHOLESTEROL 54 mg/dL (5-100)
[2017-11-29] MEDS ORDERED: ENOXAPARIN 40MG/0.4ML SYR SUBCUT SCH (09:00)
[2017-11-29] MEDS: METHIMAZOLE 5MG TABLET PO SCH (09:53)
[2017-11-29] MEDS ORDERED: LOSARTAN POTASSIUM 50 MG TABLET PO SCH (10:30)
[2017-11-29 10:45] LABS: PLATELET ESTIMATE INCREASED
[2017-11-29] MEDS ORDERED: POTASSIUM CHLORIDE 20MEQ TABLET SR PO SCH (12:30)
[2017-11-29] MEDS: DILTIAZEM HCL 60MG TABLET PO SCH ×2 (13:14→17:14)
[2017-11-29 17:57] LABS: CREATINE KINASE MB FRACTION 1.3 ng/mL (0.5-3.6)
[2017-11-29] MEDS ORDERED: DIGOXIN 125MCG TABLET PO SCH ×2 (18:00)
[2017-11-29 18:01] LABS: T4 FREE 1.35 ng/dL (0.76-1.46)
== END 2017-11-29 20:55 | disposition home or self-care (01) | DRG 243 ==
LOC: ER 22:49 → 7WST 11-28 04:40 → CANRESERV 11-28 22:47 → ENRESERV 11-28 22:47
PROVIDERS: ADMIT Family Medicine; ATTEND Family Medicine
DX: K21.9 Gastro-esophageal reflux disease without esophagitis (principal); I50.31 Acute diastolic (congestive) heart failure; I42.9 Cardiomyopathy, unspecified; I48.2 Chronic atrial fibrillation; E44.1 Mild protein-calorie malnutrition; E03.9 Hypothyroidism, unspecified; I11.0 Hypertensive heart disease with heart failure; K30 Functional dyspepsia; K59.00 Constipation, unspecified; F14.10 Cocaine abuse, uncomplicated; F17.210 Nicotine dependence, cigarettes, uncomplicated; Z68.23 Body mass index [BMI] 23.0-23.9, adult; Z59.0 Homelessness; Z91.14 Patient's other noncompliance with medication regimen; Z91.19 Patient's noncompliance with other medical treatment and regimen; Z79.899 Other long term (current) drug therapy
CPT/HCPCS: 36415; 71045; 80061; 82550; 82553; 84439; 84443; 84481; 84484; 93005; 96374; 96375; 99285; J1160; J1650; J1940

== ENCOUNTER 2017-12-04 07:19 | Inpatient (IN) | payer MEDICAID ==
[~2017-12-04] VITALS: Ht 175.3 cm; Wt 84.4 kg
[2017-12-04] MEDS ORDERED: ONDANSETRON HCL 4MG/2ML INJ IV STA (07:45)
[2017-12-04] MEDS ORDERED: DILTIAZEM HCL 30MG TABLET PO ONE (07:45)
[2017-12-04] MEDS ORDERED: MORPHINE SULFATE 4 MG/ML CPJ (NOT FOR IM USE) IV STA (07:45)
[2017-12-04] MEDS ORDERED: ASPIRIN 81MG TABLET PO ONE (07:45)
[2017-12-04] MEDS ORDERED: ONDANSETRON 4MG ODT PO ONE (08:45)
[2017-12-04] MEDS ORDERED: MORPHINE SULFATE 10 MG/ML CPJ IM ONE (08:45)
[2017-12-04 09:55] LABS: HEMATOCRIT. 40.5 % (42.0-52.0); HEMOGLOBIN. 12.8 g/dL (14.0-18.0); MEAN CORPUSCULAR HEMOGLOBIN 23.1 pg (28.0-32.0); MEAN CORPUSCULAR VOLUME 73.2 fL (80.0-94.0); MEAN PLATELET VOLUME 9.1 fl (7.4-10.4); PLATELET 411 x1000/uL (130-400); RED BLOOD CELL COUNT 5.53 mill/uL (4.7-6.1)
[2017-12-04 10:03] LABS: INR 1.1; PARTIAL THROMBOPLASTIN TIME 30.2 sec (23.4-31.0); PROTHROMBIN TIME 11.5 sec (9.1-11.1)
[2017-12-04 10:05] LABS: CHLORIDE 108 mEq/L (98-107)
[2017-12-04 10:17] LABS: ETHANOL BLOOD < 10 mg/dL
[2017-12-04 10:31] LABS: NUCLEATED RED BLOOD CELLS 1 /100 WBC; PLATELET ESTIMATE SLIGHTLY INCREASED
[2017-12-04] MEDS ORDERED: LORAZEPAM 2MG/ML CPJ IV ONE ×2 (12:30→18:45)
[2017-12-04] MEDS ORDERED: CHLORHEXIDINE GLUCONATE 4% EXTERNAL USE TOP NR (15:00)
[2017-12-04] MEDS ORDERED: VERAPAMIL HCL 2.5 MG/1 ML 2ML VIAL IV ONE (18:45)
[2017-12-04] MEDS ORDERED: FUROSEMIDE 40MG/4ML VIAL IVP ONE (18:45)
[2017-12-04] MEDS ORDERED: AMIODARONE HCL 150 MG in DEXT 5% WATER 100 ML IV ONE (19:00)
[2017-12-04] MEDS ORDERED: AMIODARONE HCL 50MG/ML 3ML VIAL IV ONE (19:00)
[2017-12-04] MEDS ORDERED: AMIODARONE HCL 900 MG in DEXT 5% WATER 500 ML IV PRN (19:15)
[2017-12-04 20:09] LABS: DIGOXIN 0.2 ng/mL (0.9-2.0)
[2017-12-04] MEDS ORDERED: DIGOXIN 500MCG/2ML AMP IV ONE (20:30)
[2017-12-04 20:54] LABS: *AMPHETAMINES SCREEN URINE NEGATIVE (NEGATIVE); *BARBITURATES SCREEN URINE NEGATIVE (NEGATIVE); *BENZODIAZEPINES SCREEN URINE NEGATIVE (NEGATIVE)
[2017-12-04 20:55] LABS: *COCAINE SCREEN URINE PRESUMTIVE POSITIVE (NEGATIVE); CANNABINOID URINE SCREEN NEGATIVE (NEGATIVE); METHADONE URINE SCREEN NEGATIVE (NEGATIVE); OPIATES URINE SCREEN PRESUMTIVE POSITIVE (NEGATIVE); PHENCYCLIDINE URINE SCREEN NEGATIVE (NEGATIVE)
[2017-12-05] VITALS (14 sets, daily range): BP systolic 118–163; BP diastolic 72–129
[2017-12-05] MEDS ORDERED: ACETAMINOPHEN 325MG TABLET PO PRN (01:30)
[2017-12-05] MEDS ORDERED: ONDANSETRON HCL 4MG/2ML INJ IV PRN (01:30)
[2017-12-05] MEDS ORDERED: MAGNESIUM/ALUMINUM HYDROXIDE/SIMETHICONE 30ML UDC PO PRN (01:30)
[2017-12-05] MEDS ORDERED: CLONIDINE 0.1MG TABLET PO PRN (01:30)
[2017-12-05] MEDS: DIGOXIN 500MCG/2ML AMP IV NR ×2 (02:14→02:17)
[2017-12-05] MEDS: SODIUM CHLORIDE 0.9% INJ 3ML FLUSH IVF SCH ×3 (06:00→22:00)
[2017-12-05] MEDS: DILTIAZEM HCL 60MG TABLET PO SCH ×3 (07:08→18:12)
[2017-12-05] MEDS: LOSARTAN POTASSIUM 50 MG TABLET PO SCH (08:23)
[2017-12-05] MEDS: FUROSEMIDE 40MG/4ML VIAL IVP SCH (08:23)
[2017-12-06] VITALS (13 sets, daily range): BP systolic 80–153; BP diastolic 56–98
[2017-12-06] MEDS: DILTIAZEM HCL 60MG TABLET PO SCH ×4 (05:51→17:24)
[2017-12-06] MEDS: FUROSEMIDE 40MG/4ML VIAL IVP SCH ×2 (08:20→17:26)
[2017-12-06] MEDS: LOSARTAN POTASSIUM 50 MG TABLET PO SCH (08:21)
[2017-12-06] MEDS: POTASSIUM CHLORIDE 20MEQ TABLET SR PO SCH (11:05)
[2017-12-06] MEDS: ASPIRIN 81MG EC TABLET PO SCH (11:05)
[2017-12-06] MEDS: ENOXAPARIN 40MG/0.4ML SYR SUBCUT SCH (11:09)
[2017-12-06] MEDS: SODIUM CHLORIDE 0.9% INJ 3ML FLUSH IVF SCH (22:00)
[2017-12-07] VITALS (13 sets, daily range): BP systolic 93–148; BP diastolic 52–103
[2017-12-07] MEDS: DILTIAZEM HCL 60MG TABLET PO SCH ×3 (00:27→12:36)
[2017-12-07] MEDS: SODIUM CHLORIDE 0.9% INJ 3ML FLUSH IVF SCH ×2 (05:46→13:46)
[2017-12-07 07:34] LABS: HEMATOCRIT. 38.9 % (42.0-52.0); HEMOGLOBIN. 11.9 g/dL (14.0-18.0); MEAN CORPUSCULAR HEMOGLOBIN 22.6 pg (28.0-32.0); MEAN CORPUSCULAR VOLUME 73.8 fL (80.0-94.0); MEAN PLATELET VOLUME 8.8 fl (7.4-10.4); PLATELET 344 x1000/uL (130-400); RED BLOOD CELL COUNT 5.27 mill/uL (4.7-6.1)
[2017-12-07 08:08] LABS: CHLORIDE 103 mEq/L (98-107)
[2017-12-07] MEDS: FUROSEMIDE 40MG/4ML VIAL IVP SCH (09:33)
[2017-12-07] MEDS: LOSARTAN POTASSIUM 50 MG TABLET PO SCH (09:34)
[2017-12-07] MEDS: ASPIRIN 81MG EC TABLET PO SCH (09:34)
[2017-12-07] MEDS: ENOXAPARIN 40MG/0.4ML SYR SUBCUT SCH (09:34)
[2017-12-07] MEDS: POTASSIUM CHLORIDE 20MEQ TABLET SR PO SCH (09:34)
[2017-12-07 14:11] LABS: NUCLEATED RED BLOOD CELLS 1 /100 WBC; PLATELET ESTIMATE NORMAL
== END 2017-12-07 16:45 | disposition home or self-care (01) | DRG 194 ==
LOC: ER 07:19 → 5EST 19:15 → EDBEDREQ 19:18 → EDBEDREQTM 19:18 → ENRESERV 23:53
PROVIDERS: ADMIT Internal Medicine; ATTEND Internal Medicine
DX: I11.0 Hypertensive heart disease with heart failure (principal); E43 Unspecified severe protein-calorie malnutrition; I42.9 Cardiomyopathy, unspecified; I48.2 Chronic atrial fibrillation; I50.23 Acute on chronic systolic (congestive) heart failure; F14.10 Cocaine abuse, uncomplicated; E78.5 Hyperlipidemia, unspecified; Z59.0 Homelessness; Z87.891 Personal history of nicotine dependence; Z91.14 Patient's other noncompliance with medication regimen; Z99.3 Dependence on wheelchair; Z68.27 Body mass index [BMI] 27.0-27.9, adult; Z71.51 Drug abuse counseling and surveillance of drug abuser; Z79.899 Other long term (current) drug therapy
CPT/HCPCS: 36415; 71045; 80048; 80162; 80305; 83735; 83880; 84134; 84484; 93005; 93970; 96374; 96375; 96376; 99291; G0482; J0282; J1160; J1650; J1940; J2060; J2270; J3490; J7030; J7060; Q0162

== ENCOUNTER 2017-12-10 04:21 | Emergency (ER) | payer MEDICAID ==
[~2017-12-10] VITALS: Ht 170.2 cm; Wt 59.1 kg
[2017-12-10 06:51] LABS: HEMATOCRIT. 44.5 % (42.0-52.0); HEMOGLOBIN. 13.7 g/dL (14.0-18.0); MEAN CORPUSCULAR VOLUME 74.6 fL (80.0-94.0); MEAN PLATELET VOLUME 8.6 fl (7.4-10.4); PLATELET 388 x1000/uL (130-400); RED BLOOD CELL COUNT 5.96 mill/uL (4.7-6.1); RED CELL DISTRIBUTION WIDTH 18.6 % (11.6-14.6)
[2017-12-10 07:04] LABS: CHLORIDE 105 mEq/L (98-107); ETHANOL BLOOD < 10 mg/dL
[2017-12-10 07:23] LABS: DIGOXIN 0.2 ng/mL (0.9-2.0)
[2017-12-10 07:26] LABS: PLATELET ESTIMATE NORMAL
[2017-12-10 08:33] VITALS: BP 133/75
== END 2017-12-10 08:37 | disposition left against medical advice (07) ==
LOC: ER 04:21
DX: R07.9 Chest pain, unspecified (principal); I10 Essential (primary) hypertension; I51.9 Heart disease, unspecified; F10.10 Alcohol abuse, uncomplicated; I48.91 Unspecified atrial fibrillation; Z76.5 Malingerer [conscious simulation]; Z79.899 Other long term (current) drug therapy
CPT/HCPCS: 36415; 80053; 80162; 83690; 83735; 83880; 84484; 85025; 99284; G0482

== ENCOUNTER 2018-01-02 07:46 | Inpatient (IN) | payer MEDICAID ==
[~2018-01-02] VITALS: Ht 172.7 cm; Wt 81.6 kg
[2018-01-02] MEDS ORDERED: MORPHINE SULFATE 4 MG/ML CPJ (NOT FOR IM USE) IV STA (08:12)
[2018-01-02] MEDS ORDERED: SODIUM CHLORIDE 0.9% 1,000 ML IV ONE (08:12)
[2018-01-02] MEDS ORDERED: ONDANSETRON HCL 4MG/2ML INJ IV STA (08:12)
[2018-01-02] MEDS ORDERED: DILTIAZEM HCL 30MG TABLET PO ONE ×2 (08:45→11:15)
[2018-01-02 09:22] LABS: HEMATOCRIT. 45.5 % (42.0-52.0); HEMOGLOBIN. 14.1 g/dL (14.0-18.0); MEAN CORPUSCULAR HEMOGLOBIN 22.9 pg (28.0-32.0); MEAN CORPUSCULAR VOLUME 73.9 fL (80.0-94.0); MEAN PLATELET VOLUME 8.5 fl (7.4-10.4); PLATELET 496 x1000/uL (130-400); RED BLOOD CELL COUNT 6.16 mill/uL (4.7-6.1); RED CELL DISTRIBUTION WIDTH 19.3 % (11.6-14.6)
[2018-01-02 10:04] LABS: PLATELET ESTIMATE INCREASED
[2018-01-02] MEDS ORDERED: LORAZEPAM 2MG/ML CPJ IV ONE ×3 (11:15→15:15)
[2018-01-02 11:33] LABS: INR 1.3; PARTIAL THROMBOPLASTIN TIME 33.1 sec (23.4-31.0); PROTHROMBIN TIME 12.7 sec (9.1-11.1)
[2018-01-02 12:37] LABS: CHLORIDE 110 mEq/L (98-107)
[2018-01-02 12:42] LABS: ETHANOL BLOOD < 10 mg/dL
[2018-01-02] MEDS ORDERED: VERAPAMIL HCL 2.5 MG/1 ML 2ML VIAL IV ONE ×2 (15:15→16:00)
[2018-01-02 15:53] LABS: *AMPHETAMINES SCREEN URINE NEGATIVE (NEGATIVE); *BARBITURATES SCREEN URINE NEGATIVE (NEGATIVE)
[2018-01-02 15:55] LABS: *BENZODIAZEPINES SCREEN URINE NEGATIVE (NEGATIVE); *COCAINE SCREEN URINE PRESUMTIVE POSITIVE (NEGATIVE); CANNABINOID URINE SCREEN NEGATIVE (NEGATIVE); METHADONE URINE SCREEN NEGATIVE (NEGATIVE); OPIATES URINE SCREEN PRESUMTIVE POSITIVE (NEGATIVE); PHENCYCLIDINE URINE SCREEN NEGATIVE (NEGATIVE)
[2018-01-02] MEDS ORDERED: AMIODARONE HCL 150 MG in DEXT 5% WATER 100 ML IV ONE (17:00)
[2018-01-02] MEDS ORDERED: ENOXAPARIN 60MG/0.6ML SYR SUBCUT ONE (17:00)
[2018-01-02] MEDS ORDERED: KETOROLAC 30MG/ML VIAL IV ONE (17:30)
[2018-01-02] MEDS ORDERED: HYDRALAZINE 20MG/ML VIAL IV ONE (17:30)
[2018-01-02] MEDS ORDERED: CLONIDINE 0.1MG TABLET PO PRN (21:15)
[2018-01-02] MEDS ORDERED: LORAZEPAM 2MG/ML CPJ IV PRN (21:15)
[2018-01-02] MEDS ORDERED: ONDANSETRON HCL 4MG/2ML INJ IV PRN (21:15)
[2018-01-02] MEDS ORDERED: DIPHENHYDRAMINE 50MG/ML VIAL IV PRN (21:15)
[2018-01-02] MEDS ORDERED: HYDRALAZINE 20MG/ML VIAL IV PRN (21:30)
[2018-01-02] MEDS ORDERED: DIGOXIN 500MCG/2ML AMP IV NR (21:30)
[2018-01-02] MEDS ORDERED: HALOPERIDOL LACTATE 5MG/ML VIAL IM PRN (21:30)
[2018-01-02 22:00] VITALS: BP 162/93
[2018-01-02] MEDS: SODIUM CHLORIDE 0.9% INJ 3ML FLUSH IVF SCH (22:00)
[2018-01-03] VITALS (12 sets, daily range): BP systolic 127–152; BP diastolic 68–105
[2018-01-03] MEDS: DILTIAZEM HCL 60MG TABLET PO SCH ×4 (00:52→18:32)
[2018-01-03] MEDS: SODIUM CHLORIDE 0.9% INJ 3ML FLUSH IVF SCH ×3 (06:36→21:15)
[2018-01-03] MEDS: FUROSEMIDE 40MG/4ML VIAL IVP SCH (09:46)
[2018-01-03] MEDS: LOSARTAN POTASSIUM 50 MG TABLET PO SCH (09:47)
[2018-01-03] MEDS: ASPIRIN 81MG EC TABLET PO SCH (09:47)
[2018-01-03] MEDS: ACETAMINOPHEN 325MG TABLET PO PRN (10:01)
[2018-01-04] VITALS (12 sets, daily range): BP systolic 124–170; BP diastolic 77–103
[2018-01-04] MEDS: ACETAMINOPHEN 325MG TABLET PO PRN ×2 (03:53→09:05)
[2018-01-04] MEDS: SODIUM CHLORIDE 0.9% INJ 3ML FLUSH IVF SCH ×3 (06:05→21:59)
[2018-01-04] MEDS: DILTIAZEM HCL 60MG TABLET PO SCH ×4 (06:05→19:03)
[2018-01-04] MEDS: ASPIRIN 81MG EC TABLET PO SCH (08:54)
[2018-01-04] MEDS: FUROSEMIDE 40MG/4ML VIAL IVP SCH ×2 (08:54→21:18)
[2018-01-04] MEDS: LOSARTAN POTASSIUM 50 MG TABLET PO SCH (08:54)
[2018-01-04 10:23] LABS: CHLORIDE 111 mEq/L (98-107)
[2018-01-05] VITALS (10 sets, daily range): BP systolic 107–170; BP diastolic 67–101
[2018-01-05] MEDS: ACETAMINOPHEN 325MG TABLET PO PRN (04:24)
[2018-01-05] MEDS: SODIUM CHLORIDE 0.9% INJ 3ML FLUSH IVF SCH ×3 (06:00→22:00)
[2018-01-05] MEDS: DILTIAZEM HCL 60MG TABLET PO SCH ×4 (06:00→17:54)
[2018-01-05 07:02] LABS: HEMATOCRIT. 37.9 % (42.0-52.0); HEMOGLOBIN. 11.7 g/dL (14.0-18.0); MEAN CORPUSCULAR HEMOGLOBIN 22.7 pg (28.0-32.0); MEAN CORPUSCULAR VOLUME 73.4 fL (80.0-94.0); MEAN PLATELET VOLUME 8.7 fl (7.4-10.4); PLATELET 445 x1000/uL (130-400); RED BLOOD CELL COUNT 5.17 mill/uL (4.7-6.1); RED CELL DISTRIBUTION WIDTH 18.8 % (11.6-14.6)
[2018-01-05 07:14] LABS: CHLORIDE 106 mEq/L (98-107)
[2018-01-05 08:13] LABS: ATYPICAL LYMPHOCYTES 1; PLATELET ESTIMATE INCREASED
[2018-01-05] MEDS: ASPIRIN 81MG EC TABLET PO SCH (08:28)
[2018-01-05] MEDS: LOSARTAN POTASSIUM 50 MG TABLET PO SCH (08:28)
[2018-01-05] MEDS: FUROSEMIDE 40MG/4ML VIAL IVP SCH ×2 (09:00→21:00)
[2018-01-06] MEDS: SODIUM CHLORIDE 0.9% INJ 3ML FLUSH IVF SCH (05:23)
[2018-01-06] MEDS: DILTIAZEM HCL 60MG TABLET PO SCH ×3 (05:23→12:00)
[2018-01-06] MEDS: ASPIRIN 81MG EC TABLET PO SCH (09:00)
[2018-01-06] MEDS: FUROSEMIDE 40MG/4ML VIAL IVP SCH (09:00)
[2018-01-06] MEDS: LOSARTAN POTASSIUM 50 MG TABLET PO SCH (09:00)
== END 2018-01-06 12:13 | disposition home or self-care (01) | DRG 194 ==
LOC: ER 07:47 → 5EST 17:23 → EDBEDREQSVC 17:23 → EDBEDREQ 17:23 → EDBEDREQTM 17:23 → ENRESERV 19:06
PROVIDERS: ADMIT Internal Medicine; ATTEND Internal Medicine
DX: I11.0 Hypertensive heart disease with heart failure (principal); E43 Unspecified severe protein-calorie malnutrition; I42.9 Cardiomyopathy, unspecified; R65.10 Systemic inflammatory response syndrome (SIRS) of non-infectious origin without acute organ dysfunction; I48.2 Chronic atrial fibrillation; Z79.01 Long term (current) use of anticoagulants; M94.0 Chondrocostal junction syndrome [Tietze]; I50.23 Acute on chronic systolic (congestive) heart failure; F14.10 Cocaine abuse, uncomplicated; Z59.0 Homelessness; Z72.0 Tobacco use; Z91.14 Patient's other noncompliance with medication regimen; Z68.27 Body mass index [BMI] 27.0-27.9, adult; F11.10 Opioid abuse, uncomplicated; Z79.899 Other long term (current) drug therapy
CPT/HCPCS: 36415; 71045; 80048; 80305; 83880; 84484; 93005; 96372; 96374; 96375; 96376; 99291; G0482; J0282; J0360; J1160; J1650; J1885; J1940; J2060; J2270; J2405; J3490; J7030; J7060

== ENCOUNTER 2018-01-14 20:54 | Emergency (ER) | payer MEDICAID ==
[~2018-01-14] VITALS: Ht 170.2 cm; Wt 75.0 kg
[2018-01-14] MEDS ORDERED: DILTIAZEM HCL 30MG TABLET PO ONE (23:00)
[2018-01-14] MEDS ORDERED: ASPIRIN 81MG TABLET PO ONE (23:00)
[2018-01-15 00:06] LABS: HEMATOCRIT. 44.2 % (42.0-52.0); HEMOGLOBIN. 13.6 g/dL (14.0-18.0); MEAN CORPUSCULAR HEMOGLOBIN 22.4 pg (28.0-32.0); MEAN PLATELET VOLUME 8.5 fl (7.4-10.4); PLATELET 453 x1000/uL (130-400); RED BLOOD CELL COUNT 6.05 mill/uL (4.7-6.1)
[2018-01-15 00:14] LABS: CHLORIDE 107 mEq/L (98-107)
[2018-01-15 00:17] LABS: ETHANOL BLOOD < 10 mg/dL
[2018-01-15 00:22] LABS: CREATINE KINASE 109 IU/L (39-308)
[2018-01-15] MEDS ORDERED: LEVOFLOXACIN 500MG TABLET PO ONE (00:45)
[2018-01-15 02:06] LABS: ATYPICAL LYMPHOCYTES 2; NUCLEATED RED BLOOD CELLS 2 /100 WBC
[2018-01-15 02:07] LABS: PLATELET ESTIMATE SLIGHTLY INCREASED
[2018-01-15 08:48] VITALS: BP 131/74
== END 2018-01-15 09:19 | disposition home or self-care (01) ==
LOC: ER 21:01
DX: R07.89 Other chest pain (principal); I48.91 Unspecified atrial fibrillation; D72.829 Elevated white blood cell count, unspecified; R60.0 Localized edema; I11.0 Hypertensive heart disease with heart failure; Z59.0 Homelessness; Z99.3 Dependence on wheelchair; Z90.81 Acquired absence of spleen; Z79.01 Long term (current) use of anticoagulants
CPT/HCPCS: 36415; 71045; 80053; 82550; 83690; 83880; 84484; 85025; 99284; G0482

== ENCOUNTER 2018-01-15 13:56 | Inpatient (IN) | payer MEDICAID ==
[~2018-01-15] VITALS: Ht 180.3 cm; Wt 89.8 kg
[2018-01-15] MEDS ORDERED: DILTIAZEM HCL 30MG TABLET PO ONE (14:45)
[2018-01-15 15:15] LABS: BASOPHILS % 0.2 % (0.0-2.0); HEMOGLOBIN. 12.3 g/dL (14.0-18.0); LYMPHOCYTES % 27.7 % (20.0-50.0); MEAN CORPUSCULAR HEMOGLOBIN 22.1 pg (28.0-32.0); MEAN CORPUSCULAR VOLUME 73.7 fL (80.0-94.0); MEAN PLATELET VOLUME 8.7 fl (7.4-10.4); MONOCYTES % 3.2 % (2.0-8.0); NEUTROPHILS % 68.9 % (40.0-76.0); PLATELET 441 x1000/uL (130-400); RED BLOOD CELL COUNT 5.55 mill/uL (4.7-6.1); RED CELL DISTRIBUTION WIDTH 18.8 % (11.6-14.6)
[2018-01-15 15:22] LABS: CHLORIDE 108 mEq/L (98-107)
[2018-01-15] MEDS ORDERED: DILTIAZEM HCL 5MG/ML 5ML VIAL IV ONE ×2 (15:45→16:15)
[2018-01-15] MEDS ORDERED: LEVOFLOXACIN 250MG TABLET PO ONE (16:30)
[2018-01-15] MEDS ORDERED: ONDANSETRON HCL 4MG/2ML INJ IV PRN (16:45)
[2018-01-15] MEDS ORDERED: NITROGLYCERIN 0.4MG TABLET SL SL PRN (16:45)
[2018-01-15] MEDS ORDERED: ZOLPIDEM TARTRATE 5MG TABLET PO PRN (16:45)
[2018-01-15] MEDS ORDERED: DOCUSATE SODIUM 100MG CAPSULE PO PRN (16:45)
[2018-01-15] MEDS ORDERED: DIGOXIN 500MCG/2ML AMP IV NR (16:45)
[2018-01-15] MEDS ORDERED: ACETAMINOPHEN 325MG TABLET PO PRN (16:45)
[2018-01-15] MEDS ORDERED: CLONIDINE 0.1MG TABLET PO PRN (16:45)
[2018-01-15] MEDS ORDERED: MAGNESIUM/ALUMINUM HYDROXIDE/SIMETHICONE 30ML UDC PO PRN (16:45)
[2018-01-15] MEDS ORDERED: GUAIFENESIN 200MG/10ML SUGAR FREE UDC PO PRN (16:45)
[2018-01-15] MEDS ORDERED: IPRATROPIUM/ALBUTEROL 0.5-3(2.5)MG/3ML NEB INH PRN (16:45)
[2018-01-15] MEDS ORDERED: KETOROLAC 15MG/ML VIAL IV PRN (16:45)
[2018-01-15] MEDS ORDERED: LORAZEPAM 0.5MG TABLET PO PRN (16:45)
[2018-01-15] MEDS ORDERED: NA PHOS,M-B/NA PHOS,DI-BA ENEMA 118ML PR PRN (16:45)
[2018-01-15] MEDS ORDERED: DIGOXIN 125MCG TABLET PO SCH (18:00)
[2018-01-15] MEDS ORDERED: CLINDAMYCIN 600 MG in DEXTROSE 5% WATER 50 ML IV ONE (19:30)
[2018-01-15] MEDS ORDERED: DILTIAZEM HCL 60MG TABLET PO NR (20:45)
[2018-01-15] MEDS ORDERED: ENOXAPARIN 40MG/0.4ML SYR SUBCUT SCH (21:00)
[2018-01-15] MEDS ORDERED: FUROSEMIDE 20MG TABLET PO SCH (21:00)
[2018-01-15] MEDS ORDERED: FAMOTIDINE 20MG TABLET PO NR (22:00)
[2018-01-15] MEDS ORDERED: SPIRONOLACTONE 25MG TABLET PO NR (22:00)
[2018-01-15 22:35] VITALS: BP 134/65
[2018-01-16] MEDS: DILTIAZEM HCL 60MG TABLET PO SCH ×2 (06:08→13:49)
[2018-01-16 06:17] VITALS: BP 127/88
[2018-01-16 08:00] VITALS: BP 144/80
[2018-01-16] MEDS ORDERED: ASPIRIN 325MG EC TABLET PO SCH (09:00)
[2018-01-16] MEDS ORDERED: FUROSEMIDE 20MG TABLET PO SCH (09:00)
[2018-01-16] MEDS ORDERED: FAMOTIDINE 20MG TABLET PO SCH (09:00)
[2018-01-16] MEDS ORDERED: SPIRONOLACTONE 25MG TABLET PO SCH (09:00)
[2018-01-16 09:46] VITALS: BP 144/80
[2018-01-16 10:33] LABS: CREATINE KINASE MB FRACTION 1.6 ng/mL (0.5-3.6)
[2018-01-16 12:00] VITALS: BP 154/83
== END 2018-01-16 15:28 | disposition home or self-care (01) | DRG 816 ==
LOC: ER 15:31 → 6WST 15:35 → EDBEDREQ 16:23 → ENRESERV 19:51 → CANRESERV 19:51 → ENRESERV 20:57
PROVIDERS: ADMIT Internal Medicine; ATTEND Internal Medicine
DX: T40.5X1A Poisoning by cocaine, accidental (unintentional), initial encounter (principal); E43 Unspecified severe protein-calorie malnutrition; I50.43 Acute on chronic combined systolic (congestive) and diastolic (congestive) heart failure; I48.91 Unspecified atrial fibrillation; I42.9 Cardiomyopathy, unspecified; E83.51 Hypocalcemia; I11.0 Hypertensive heart disease with heart failure; F14.10 Cocaine abuse, uncomplicated; Z79.82 Long term (current) use of aspirin; Z68.27 Body mass index [BMI] 27.0-27.9, adult; Z79.899 Other long term (current) drug therapy
CPT/HCPCS: 36415; 71045; 80162; 82550; 82553; 83880; 84484; 96374; 99285; J1650; J3490; J7050; J7060